=== PATIENT | female | born 1980 | race Caucasian/White ===

== ENCOUNTER → 2016-04-29 | Outpatient (CLI) | payer BC, OTHER ==
--- NOTE | 2016-04-29 15:20 | US ---
EXAMINATION TYPE: US abdomen complete DATE OF EXAM: 04/29/2016 12:20 PM COMPARISON: 2008 abd in pacs CLINICAL HISTORY: 35-year-old female Abdominal Pain R10.84. acute right sided pain. TECHNIQUE: Multiple sonographic images of the abdomen were obtained. FINDINGS: Liver Length: 14.9 cm Gallbladder Wall: 0.2 cm CBD: 0.4 cm Spleen: 9.3 cm Right Kidney: 11.6 x 3.7 x 5.6 cm Left Kidney: 10.7 x 5.6 x 5.9 cm Pancreas: Within normal limits Liver: Normal size with homogeneous echotexture. No focal lesion seen. Gallbladder: No abnormal gallbladder distention, wall thickening, pericholecystic fluid, or shadowin g calculi. Evidence for sonographic Owusu's sign: no CBD: Normal size. Spleen: Within normal limits. Right Kidney: No hydronephrosis. Left Kidney: No hydronephrosis. Upper IVC: Within normal limits. Abd Aorta: Within normal limits. IMPRESSION: Unremarkable sonographic examination of the abdomen.
== END | disposition home or self-care (01) ==
LOC: RADUSWWP 12:00
PROVIDERS: ATTEND Family Medicine
DX: R10.9 Unspecified abdominal pain (principal)
CPT/HCPCS: 76700

== ENCOUNTER → 2016-05-06 | Outpatient (CLI) | payer BC, OTHER ==
--- NOTE | 2016-05-07 08:10 | CT ---
EXAMINATION TYPE: CT abdomen pelvis wo con DATE OF EXAM: 05/06/2016 5:32 PM COMPARISON: NONE HISTORY: Right sided pain with nausea CT DLP: 512 mGycm FINDINGS: LUNG BASES: No evidence for nodule. No evidence for infiltrate. LIVER/GB: The gallbladder is unremarkable. No space-occupying hepatic lesion. PANCREAS: No pancreatic mass identified. No inflammatory process seen. SPLEEN: No evidence for splenomegaly. No intrasplenic lesions seen. ADRENALS: No adrenal nodules identified. No evidence for thickening. KIDNEYS: No evidence for renal mass. No nephrolithiasis. No hydronephrosis. BOWEL: Appendix has a normal appearance. No evidence of bowel obstruction. No inflammatory process. Lymph nodes: No evidence for adenopathy greater than 1 cm. Abdominal aorta: Atheromatous changes seen. No evidence for aneurysm. Genital organs: No evidence for uterine mass. The right ovary is unremarkable. Fullness of the left o vary measuring 3.4 cm may reflect underlying lesion. Consider ultrasound correlation. Other: Degenerative change and postoperative change lumbar spine. Anterolisthesis L5 on S1 of several millimeters. IMPRESSION: Fullness of the left ovary measuring 3.4 cm may reflect underlying lesion. Consider ultrasound correl ation.
== END | disposition home or self-care (01) ==
LOC: RADCTMAIN 17:09
PROVIDERS: ATTEND Family Medicine
DX: R31.9 Hematuria, unspecified (principal)
CPT/HCPCS: 74176

== ENCOUNTER 2016-06-08 13:15 | Emergency (ER) | payer SELFPAY ==
[2016-06-08] MEDS ORDERED: ASPIRIN 325 MG TAB PO STA (14:11)
--- NOTE | 2016-06-08 14:13 | ED ---
Arrhythmia/Palpitations HPI - General Chief Complaint: Arrhythmia/Palpitations Stated Complaint: Palpatations Time Seen by Provider: 06/08/16 14:00 Source: patient, RN notes reviewed Mode of arrival: ambulatory Limitations: no limitations - History of Present Illness Initial Comments: 35-year-old female presents emergency Department with chief complaint of palpitations. Patient states ever since last night she's been having palpitations and stating that it feels that her heart is skipping a beat. Patient states she's never had any symptoms like this in the past. Patient denies any chest pain, shortness breath, fever, chills, dizziness, nausea vomiting associated with. Patient states she has been having ongoing abdominal issues for last 2 months in which she seen her primary care physician and OB/ CASHIER RECEPTIONIST and had multiple tests and which are ruling out things. Patient states that she does have a history anxiety and states that she no she was worked up about everything is going on. Patient denies any headache, focal weakness. Patient denies any history of hypertension, hyperlipidemia, diabetes. - Related Data Home Medications Medication Instructions Recorded Confirmed HYDROcodone/APAP 5-325MG [[place] 5] 1 tab PO Q4HR PRN 06/08/16 06/08/16 Allergies Allergy/AdvReac Type Severity Reaction Status Date / Time amoxicillin [Amoxicillin] Allergy HIVES Verified 06/08/16 14:30 prednisone Allergy SOB Verified 06/08/16 14:30 Review of Systems ROS Statement: Those systems with pertinent positive or pertinent negative responses have been documented in the HPI. ROS Other: All systems not noted in ROS Statement are negative. Past Medical History Past Medical History: No Reported History Additional Past Medical History / Comment(s): 09/03/14 Pt admitted to floor s/p lumbar surgery (see surgical hx section). Other HX: seasonal allergies. History of Any Multi-Drug Resistant Organisms: None Reported Past Surgical History: Back Surgery, Section, Orthopedic Surgery Additional Past Surgical History / Comment(s): 09/03/14 Posterior lumbar decompression and fusion, transforaminal lumbar interbody fusion L5-S1 with cell saver, graft and NIM cord monitoring. Other SX HX: ESSURE PROCEDURE, PAIN INJECTIONS to low back. Additional Past Anesthesia/Blood Transfusion Reaction / Comment(s): Pt has never recieved blood. Past Psychological History: ADD/ADHD, Anxiety Additional Psychological History / Comment(s): Pt states she has ADHD and takes concerta while in school. She lives with her fiancee and 2 of her 4 children. She is independent. She has no assistive devices and no home care agency use. She drives a car. Smoking Status: Former smoker Past Alcohol Use History: Rare Additional Past Alcohol Use History / Comment(s): Pt states she started smoking at age 11 yrs old and QUIT MAY 2014. Past Drug Use History: None Reported - Past Family History Mother Additional Family Medical History / Comment(s): Hysterectomy for pre-cancer Father Additional Family Medical History / Comment(s): Father is an alcoholic per pt. General Exam Limitations: no limitations General appearance: alert, in no apparent distress Head exam: Present: atraumatic, normocephalic, normal inspection Eye exam: Present: normal appearance, PERRL, EOMI. Absent: scleral icterus, conjunctival injection, periorbital swelling ENT exam: Present: normal exam, normal oropharynx, mucous membranes moist, TM's normal bilaterally, normal external ear exam Neck exam: Present: normal inspection, full ROM. Absent: tenderness, meningismus, lymphadenopathy Respiratory exam: Present: normal lung sounds bilaterally. Absent: respiratory distress, wheezes, rales, rhonchi, stridor Cardiovascular Exam: Present: regular rate, normal rhythm, normal heart sounds. Absent: systolic murmur, diastolic murmur, rubs, gallop, clicks Course Vital Signs 06/08/16 13:27 Temperature 97.4 F L Pulse Rate 93 Respiratory 16 Rate Blood Pressure 117/72 O2 Sat by Pulse 100 Oximetry EKG Findings - EKG Comments: EKG Findings:: EKG performed at 14:02, sinus rhythm with a rate of 83, SC 140, QRS duration 92, QT/QTC 384/451 Medical Decision Making - Medical Decision Making 35-year-old female presented emergency department for palpitations. Patient's EKG shows no acute abnormality. Patient's lab work and will months. Patient will be discharged follow-up with advertising operations coordinator and primary care physician for possible Holter monitor or further testing. Return parameters were discussed. - Lab Data Result diagrams: 06/08/16 14:18 06/08/16 14:18 Lab Results 06/08/16 06/08/16 06/08/16 Range/Units 14:18 14:18 14:18 WBC 5.3 (3.8-10.6) k/uL RBC 4.64 (3.80-5.40) m/uL Hgb 12.8 (11.4-16.0) gm/dL Hct 40.4 (34.0-46.0) % MCV 87.0 (80.0-100.0) fL MCH 27.5 (25.0-35.0) pg MCHC 31.6 (31.0-37.0) g/dL RDW 11.8 (11.5-15.5) % Plt Count 286 (150-450) k/uL Neutrophils % 61 % Lymphocytes % 26 % Monocytes % 9 % Eosinophils % 1 % Basophils % 1 % Neutrophils # 3.2 (1.3-7.7) k/uL Lymphocytes # 1.4 (1.0-4.8) k/uL Monocytes # 0.5 (0-1.0) k/uL Eosinophils # 0.1 (0-0.7) k/uL Basophils # 0.0 (0-0.2) k/uL PT (9.0-12.0) sec INR (<1.1) APTT (22.0-30.0) sec Sodium 141 (137-145) mmol/L Potassium 4.1 (3.5-5.1) mmol/L Chloride 104 (98-107) mmol/L Carbon Dioxide 29 (22-30) mmol/L Anion Gap 8 mmol/L BUN 8 (7-17) mg/dL Creatinine 0.70 (0.52-1.04) mg/dL Est GFR (MDRD) Af Amer >60 (>60 ml/min/1.73 sqM) Est GFR (MDRD) Non-Af >60 (>60 ml/min/1.73 sqM) Glucose 79 (74-99) mg/dL Calcium 9.3 (8.4-10.2) mg/dL Magnesium 2.1 (1.6-2.3) mg/dL Total Bilirubin 0.5 (0.2-1.3) mg/dL AST 15 (14-36) U/L ALT 30 (9-52) U/L Alkaline Phosphatase 64 (38-126) U/L Total Creatine Kinase 40 (30-135) U/L CK-MB (CK-2) <0.2 (0.0-2.4) ng/mL CK-MB (CK-2) Rel Index Troponin I <0.012 (0.000-0.034) ng/mL Total Protein 7.1 (6.3-8.2) g/dL Albumin 4.1 (3.5-5.0) g/dL TSH 0.870 (0.465-4.680) mIU/L 06/08/16 Range/Units 14:18 WBC (3.8-10.6) k/uL RBC (3.80-5.40) m/uL Hgb (11.4-16.0) gm/dL Hct (34.0-46.0) % MCV (80.0-100.0) fL MCH (25.0-35.0) pg MCHC (31.0-37.0) g/dL RDW (11.5-15.5) % Plt Count (150-450) k/uL Neutrophils % % Lymphocytes % % Monocytes % % Eosinophils % % Basophils % % Neutrophils # (1.3-7.7) k/uL Lymphocytes # (1.0-4.8) k/uL Monocytes # (0-1.0) k/uL Eosinophils # (0-0.7) k/uL Basophils # (0-0.2) k/uL PT 11.8 (9.0-12.0) sec INR 1.2 (<1.1) APTT 25.1 (22.0-30.0) sec Sodium (137-145) mmol/L Potassium (3.5-5.1) mmol/L Chloride (98-107) mmol/L Carbon Dioxide (22-30) mmol/L Anion Gap mmol/L BUN (7-17) mg/dL Creatinine (0.52-1.04) mg/dL Est GFR (MDRD) Af Amer (>60 ml/min/1.73 sqM) Est GFR (MDRD) Non-Af (>60 ml/min/1.73 sqM) Glucose (74-99) mg/dL Calcium (8.4-10.2) mg/dL Magnesium (1.6-2.3) mg/dL Total Bilirubin (0.2-1.3) mg/dL AST (14-36) U/L ALT (9-52) U/L Alkaline Phosphatase (38-126) U/L Total Creatine Kinase (30-135) U/L CK-MB (CK-2) (0.0-2.4) ng/mL CK-MB (CK-2) Rel Index Troponin I (0.000-0.034) ng/mL Total Protein (6.3-8.2) g/dL Albumin (3.5-5.0) g/dL TSH (0.465-4.680) mIU/L Disposition Clinical Impression: Palpitations Disposition: HOME SELF-CARE Condition: Stable Instructions: Palpitations (ED) Additional Instructions: Please return to the Emergency Department if symptoms worsen or any other concerns. Referrals: Nagi Strickland DO [Primary Care Provider] - 1-2 days Courtney Urbina MD [STAFF PHYSICIAN] - 1-2 days Time of Disposition: 15:26
[2016-06-08 14:29] LABS: Basophils % (A) 1 %; CH 28.1; CHCM 32.5; Eosinophils # (A) 0.1 k/uL (0-0.7); Eosinophils % (A) 1 %; HCT 40.4 % (34.0-46.0); HDW 2.39; HGB 12.8 gm/dL (11.4-16.0); Luc # (Auto) 0.14; Luc % (Auto) 3; Lymphocytes # (A) 1.4 k/uL (1.0-4.8); Lymphocytes % (A) 26 %; MCH 27.5 pg (25.0-35.0); MCHC 31.6 g/dL (31.0-37.0); Mean Platelet Volume 6.6; Monocytes # (A) 0.5 k/uL (0-1.0); Monocytes % (A) 9 %; Neutrophils # (A) 3.2 k/uL (1.3-7.7); Neutrophils % (A) 61 %; RBC 4.64 m/uL (3.80-5.40); RDW 11.8 % (11.5-15.5); WBC 5.3 k/uL (3.8-10.6)
[2016-06-08 14:36] LABS: INR 1.2 (<1.1); Partial Thromboplastin Time 25.1 sec (22.0-30.0); Prothrombin Time 11.8 sec (9.0-12.0)
[2016-06-08 14:39] LABS: ALT 30 U/L (9-52); AST 15 U/L (14-36); Alkaline Phosphatase 64 U/L (38-126); Anion Gap 8 mmol/L; Blood Urea Nitrogen 8 mg/dL (7-17); Calcium 9.3 mg/dL (8.4-10.2); Carbon Dioxide 29 mmol/L (22-30); Chloride 104 mmol/L (98-107); Glucose 79 mg/dL (74-99); Magnesium 2.1 mg/dL (1.6-2.3); Non-African American GFR(MDRD) >60 (>60 ml/min/1.73 sqM); Potassium 4.1 mmol/L (3.5-5.1); Sodium 141 mmol/L (137-145); Total Bilirubin 0.5 mg/dL (0.2-1.3); Total Protein 7.1 g/dL (6.3-8.2)
[2016-06-08 14:53] LABS: Creatine Kinase 40 U/L (30-135)
--- NOTE | 2016-06-08 14:59 | XR ---
EXAMINATION TYPE: XR chest 2V DATE OF EXAM: 06/08/2016 2:40 PM COMPARISON: 08/27/2014 INDICATION: Abnormal heart rate TECHNIQUE: Single frontal view of the chest is obtained. FINDINGS: The heart size is normal. The pulmonary vasculature is normal. The lungs are clear. IMPRESSION: 1. No acute pulmonary process.
[2016-06-08 15:05] LABS: Creatine Kinase MB <0.2 ng/mL (0.0-2.4); Troponin I <0.012 ng/mL (0.000-0.034)
[2016-06-08 15:54] VITALS: BP 108/57; PULSE 75; RESP 18; TEMP 97.9
== END 2016-06-08 15:54 | disposition home or self-care (01) ==
LOC: EC 13:15
DX: R00.2 Palpitations (principal); Z87.891 Personal history of nicotine dependence; Z88.0 Allergy status to penicillin; Z88.8 Allergy status to other drugs, medicaments and biological substances
CPT/HCPCS: 36415; 71020; 80053; 82550; 82553; 83735; 84443; 84484; 85025; 85610; 85730; 93005; 99285

== ENCOUNTER 2016-10-03 09:23 | Day surgery (SDC) | payer OTHER ==
[2016-09-29 14:03] VITALS: BMI 31.3
[~2016-10-03 09:23] MED LIST: LACTATED RINGERS 1,000 ML IV SCH
[2016-10-03 09:46] VITALS: TEMP 100.2
[2016-10-03] MEDS: LACTATED RINGERS 1,000 ML IV SCH ×2 (09:56→11:11)
[2016-10-03] MEDS ORDERED: LIDOCAINE 1% 20 ML VIAL (10MG/ML) FOR IV START INTRADERMA ONE (09:56)
[2016-10-03] MEDS ORDERED: PROPOFOL 10 MG/ML 20 ML VIAL IV ONE (11:12)
--- NOTE | 2016-10-03 11:47 | P.PCN ---
Date of Procedure: 10/03/16 Preoperative Diagnosis: Postoperative Diagnosis: Procedure(s) Performed: Procedure: Total colonoscopy. Preoperative diagnosis: Abdominal pain and change in bowel habits.. Postoperative diagnosis: Exam the cecum within normal limits. Preparation: HalfLytely prep. Sedation: Was provided by anesthesia. Brief clinical history: The patient is a 35-year-old female who is referred for this evaluation because of abdominal pain and change in bowel habits that started in April of this year. The patient describes the pain to be mostly on the right side. Her bowel movements are mostly once a day and there are days where she would not have a BM for couple days, but there is no history of diarrhea. No history of bleeding. Gallbladder workup was negative. This evaluation is requested to rule out neoplasia, inflammatory bowel disease or other pathology. Procedure: With the patient on her left lateral decubitus position and after informed consent and adequate sedation, the perianal area was inspected and it did not show any fissures or fistulas. There were no masses felt on digital rectal examination. The Olympus CFQ 160L video colonoscope was then inserted in the rectum in the usual fashion and advanced to the cecum. I intubated the ileocecal valve and examined the terminal ileum as well. The mucosa appeared healthy. No polyps or tumors were seen or any obvious diverticular disease. I retroflexed the endoscope in the rectum before the endoscope was withdrawn. The patient tolerated the procedure well. Plan: The patient was reassured. Further plans will be made based on her course. For future screening for colon neoplasia, I am recommending repeat exam in 10 years or by age 49. She will follow-up with you as planned. Implants: Indications for Procedure: Operative Findings: Description of Procedure:
[2016-10-03 11:57] VITALS: BP 110/57; PULSE 72; RESP 18
== END 2016-10-03 12:23 | disposition home or self-care (01) ==
LOC: ORWHC2ENDO 09:23
DX: R19.4 Change in bowel habit (principal); R10.9 Unspecified abdominal pain; Z88.0 Allergy status to penicillin; Z88.8 Allergy status to other drugs, medicaments and biological substances; Z79.891 Long term (current) use of opiate analgesic; Z98.1 Arthrodesis status
CPT/HCPCS: 81025; 45378; J2704

== ENCOUNTER 2017-06-21 15:22 | Emergency (ER) | payer OTHER ==
[2017-06-21] MEDS ORDERED: SODIUM CHLORIDE 0.9% 1,000 ML IV STA (16:39)
--- NOTE | 2017-06-21 16:42 | ED ---
General Adult HPI - General Chief complaint: Abdominal Pain Stated complaint: Abdominal pain Time Seen by Provider: 06/21/17 16:33 Source: patient, RN notes reviewed Mode of arrival: ambulatory Limitations: no limitations - History of Present Illness Initial comments: Patient is a pleasant 36-year-old female presenting to the emergency Department with abdominal discomfort. Patient has not felt well for a couple of days. Decreased appetite. Patient has had some nausea and did vomit earlier. Patient felt lightheaded earlier however did not pass out. Patient is having some abdominal discomfort that has been intermittent. Patient states more so today. Patient did go to her doctor today and had discomfort with abdominal exam. No fever. Patient is currently on her menses. No pelvic pain. No discharge. - Related Data Home Medications Medication Instructions Recorded Confirmed HYDROcodone/APAP 5-325MG [[place] 5] 1 tab PO DAILY PRN 06/08/16 06/21/17 Loratadine [Claritin] 10 mg PO DAILY PRN 06/21/17 06/21/17 Meloxicam [Mobic] 15 mg PO DAILY PRN 06/21/17 06/21/17 Allergies Allergy/AdvReac Type Severity Reaction Status Date / Time amoxicillin [Amoxicillin] Allergy HIVES Verified 06/21/17 16:55 prednisone Allergy SOB Verified 06/21/17 16:55 Review of Systems ROS Statement: Those systems with pertinent positive or pertinent negative responses have been documented in the HPI. ROS Other: All systems not noted in ROS Statement are negative. Constitutional: Denies: fever Eyes: Denies: eye pain ENT: Denies: ear pain Respiratory: Denies: cough Cardiovascular: Denies: chest pain Endocrine: Denies: fatigue Gastrointestinal: Reports: abdominal pain, nausea Genitourinary: Denies: dysuria Musculoskeletal: Reports: back pain (Chronic unchanged back pain) Skin: Denies: rash Neurological: Denies: weakness Past Medical History Past Medical History: No Reported History Additional Past Medical History / Comment(s): seasonal allergies. IBS History of Any Multi-Drug Resistant Organisms: None Reported Past Surgical History: Back Surgery, Section, Orthopedic Surgery Additional Past Surgical History / Comment(s): 09/03/14 Posterior lumbar decompression and fusion, transforaminal lumbar interbody fusion L5-S1 with cell saver, graft and NIM cord monitoring. Other SX HX: ESSURE PROCEDURE, PAIN INJECTIONS to low back. Past Anesthesia/Blood Transfusion Reactions: No Reported Reaction Additional Past Anesthesia/Blood Transfusion Reaction / Comment(s): Pt has never recieved blood. Past Psychological History: ADD/ADHD, Anxiety Smoking Status: Current every day smoker Past Alcohol Use History: None Reported Past Drug Use History: None Reported - Past Family History Mother Additional Family Medical History / Comment(s): Hysterectomy for pre-cancer Father Additional Family Medical History / Comment(s): Father is an alcoholic per pt. General Exam Limitations: no limitations General appearance: alert, in no apparent distress Head exam: Present: atraumatic Eye exam: Present: normal appearance, PERRL ENT exam: Present: normal oropharynx Neck exam: Present: normal inspection Respiratory exam: Present: normal lung sounds bilaterally Cardiovascular Exam: Present: regular rate, normal rhythm Expanded Peripheral pulses: 2+: Posterior Tibialis (R), Posterior Tibialis (L) GI/Abdominal exam: Present: soft, tenderness (Mild tenderness right lower quadrant), normal bowel sounds. Absent: distended, guarding, rebound, rigid, pulsatile mass Extremities exam: Present: normal inspection Back exam: Present: normal inspection. Absent: CVA tenderness (R) Neurological exam: Present: alert Psychiatric exam: Present: normal affect, normal mood Skin exam: Present: normal color Course Vital Signs 06/21/17 15:29 Temperature 98.6 F Pulse Rate 91 Respiratory 18 Rate Blood Pressure 122/69 O2 Sat by Pulse 99 Oximetry Medical Decision Making - Medical Decision Making Patient reevaluated and resting comfortably in bed. Patient updated on results and need for follow-up. - Lab Data Result diagrams: 06/21/17 16:49 06/21/17 16:49 Lab Results 06/21/17 06/21/17 06/21/17 Range/Units 16:49 16:49 16:49 WBC 7.3 (3.8-10.6) k/uL RBC 4.88 (3.80-5.40) m/uL Hgb 14.0 (11.4-16.0) gm/dL Hct 41.8 (34.0-46.0) % MCV 85.7 (80.0-100.0) fL MCH 28.7 (25.0-35.0) pg MCHC 33.5 (31.0-37.0) g/dL RDW 11.9 (11.5-15.5) % Plt Count 350 (150-450) k/uL Neutrophils % 62 % Lymphocytes % 26 % Monocytes % 6 % Eosinophils % 5 % Basophils % 1 % Neutrophils # 4.5 (1.3-7.7) k/uL Lymphocytes # 1.9 (1.0-4.8) k/uL Monocytes # 0.4 (0-1.0) k/uL Eosinophils # 0.3 (0-0.7) k/uL Basophils # 0.1 (0-0.2) k/uL PT 11.3 (9.0-12.0) sec INR 1.2 H (<1.2) APTT 24.4 (22.0-30.0) sec Sodium 141 (137-145) mmol/L Potassium 4.1 (3.5-5.1) mmol/L Chloride 104 (98-107) mmol/L Carbon Dioxide 28 (22-30) mmol/L Anion Gap 9 mmol/L BUN 10 (7-17) mg/dL Creatinine 0.60 (0.52-1.04) mg/dL Est GFR (CKD-EPI)AfAm >90 (>60 ml/min/1.73 sqM) Est GFR (CKD-EPI)NonAf >90 (>60 ml/min/1.73 sqM) Glucose 90 (74-99) mg/dL Calcium 9.8 (8.4-10.2) mg/dL Total Bilirubin 0.3 (0.2-1.3) mg/dL AST 19 (14-36) U/L ALT 17 (9-52) U/L Alkaline Phosphatase 74 (38-126) U/L Total Protein 7.5 (6.3-8.2) g/dL Albumin 4.4 (3.5-5.0) g/dL Amylase 48 (30-110) U/L Lipase 88 (23-300) U/L Urine Color Urine Appearance (Clear) Urine pH (5.0-8.0) Ur Specific [place] (1.001-1.035) Urine Protein (Negative) Urine Glucose (UA) (Negative) Urine Ketones (Negative) Urine Blood (Negative) Urine Nitrite (Negative) Urine Bilirubin (Negative) Urine Urobilinogen (<2.0) mg/dL Ur Leukocyte Esterase (Negative) Urine RBC (0-5) /hpf Urine WBC (0-5) /hpf Ur Squamous Epith Cells (0-4) /hpf Urine Mucus (None) /hpf 06/21/17 Range/Units 16:49 WBC (3.8-10.6) k/uL RBC (3.80-5.40) m/uL Hgb (11.4-16.0) gm/dL Hct (34.0-46.0) % MCV (80.0-100.0) fL MCH (25.0-35.0) pg MCHC (31.0-37.0) g/dL RDW (11.5-15.5) % Plt Count (150-450) k/uL Neutrophils % % Lymphocytes % % Monocytes % % Eosinophils % % Basophils % % Neutrophils # (1.3-7.7) k/uL Lymphocytes # (1.0-4.8) k/uL Monocytes # (0-1.0) k/uL Eosinophils # (0-0.7) k/uL Basophils # (0-0.2) k/uL PT (9.0-12.0) sec INR (<1.2) APTT (22.0-30.0) sec Sodium (137-145) mmol/L Potassium (3.5-5.1) mmol/L Chloride (98-107) mmol/L Carbon Dioxide (22-30) mmol/L Anion Gap mmol/L BUN (7-17) mg/dL Creatinine (0.52-1.04) mg/dL Est GFR (CKD-EPI)AfAm (>60 ml/min/1.73 sqM) Est GFR (CKD-EPI)NonAf (>60 ml/min/1.73 sqM) Glucose (74-99) mg/dL Calcium (8.4-10.2) mg/dL Total Bilirubin (0.2-1.3) mg/dL AST (14-36) U/L ALT (9-52) U/L Alkaline Phosphatase (38-126) U/L Total Protein (6.3-8.2) g/dL Albumin (3.5-5.0) g/dL Amylase (30-110) U/L Lipase (23-300) U/L Urine Color Light Yellow Urine Appearance Clear (Clear) Urine pH 6.5 (5.0-8.0) Ur Specific [place] 1.009 (1.001-1.035) Urine Protein Negative (Negative) Urine Glucose (UA) Negative (Negative) Urine Ketones Negative (Negative) Urine Blood Moderate H (Negative) Urine Nitrite Negative (Negative) Urine Bilirubin Negative (Negative) Urine Urobilinogen <2.0 (<2.0) mg/dL Ur Leukocyte Esterase Negative (Negative) Urine RBC 23 H (0-5) /hpf Urine WBC 1 (0-5) /hpf Ur Squamous Epith Cells 1 (0-4) /hpf Urine Mucus Occasional H (None) /hpf - Radiology Data Radiology results: report reviewed (Computed tomography scan of the abdomen pelvis shows no acute process. Appendix appears normal) Disposition Clinical Impression: Abdominal pain Disposition: HOME SELF-CARE Condition: Stable Instructions: Abdominal Pain (ED) Additional Instructions: Please follow-up to primary care physician tomorrow. Please also follow-up with gastroenterology in the next couple of days for further evaluation. Return for fevers, increased pain, vomiting, passing out, worsening symptoms or other concerns. Referrals: Nagi Strickland DO [Primary Care Provider] - 1-2 days Nancy Roach MD [STAFF PHYSICIAN] - 1-2 days Time of Disposition: 18:30
[2017-06-21 17:01] LABS: Basophils # (A) 0.1 k/uL (0-0.2); Basophils % (A) 1 %; Eosinophils # (A) 0.3 k/uL (0-0.7); Eosinophils % (A) 5 %; HCT 41.8 % (34.0-46.0); Lymphocytes # (A) 1.9 k/uL (1.0-4.8); Lymphocytes % (A) 26 %; MCH 28.7 pg (25.0-35.0); MCHC 33.5 g/dL (31.0-37.0); MCV 85.7 fL (80.0-100.0); Mean Platelet Volume 6.9; Monocytes # (A) 0.4 k/uL (0-1.0); Monocytes % (A) 6 %; Neutrophils # (A) 4.5 k/uL (1.3-7.7); Neutrophils % (A) 62 %; Platelet Count 350 k/uL (150-450); RBC 4.88 m/uL (3.80-5.40); RDW 11.9 % (11.5-15.5); WBC 7.3 k/uL (3.8-10.6)
[2017-06-21 17:12] LABS: INR 1.2 (<1.2); Partial Thromboplastin Time 24.4 sec (22.0-30.0); Prothrombin Time 11.3 sec (9.0-12.0)
[2017-06-21 17:14] LABS: ALT 17 U/L (9-52); AST 19 U/L (14-36); Albumin 4.4 g/dL (3.5-5.0); Alkaline Phosphatase 74 U/L (38-126); Amylase 48 U/L (30-110); Anion Gap 9 mmol/L; Appearance,Urine Clear (Clear); Bilirubin,Urine Negative (Negative); Blood Urea Nitrogen 10 mg/dL (7-17); Blood,Urine Moderate (Negative); Calcium 9.8 mg/dL (8.4-10.2); Carbon Dioxide 28 mmol/L (22-30); Chloride 104 mmol/L (98-107); Color,Urine Light Yellow; Glucose 90 mg/dL (74-99); Glucose,Urine (UA) Negative (Negative); Ketones,Urine Negative (Negative); Leukocyte Esterase,Urine Negative (Negative); Lipase 88 U/L (23-300); Mucus,Urine Occasional /hpf; Nitrite,Urine Negative (Negative); PH, Urine 6.5 (5.0-8.0); Potassium 4.1 mmol/L (3.5-5.1); Protein,Urine Negative (Negative); RBC,Urine 23 /hpf (0-5); Sodium 141 mmol/L (137-145); Specific Gravity,Urine 1.009 (1.001-1.035); Squamous Epithelial Cell,Urine 1 /hpf (0-4); Total Bilirubin 0.3 mg/dL (0.2-1.3); Total Protein 7.5 g/dL (6.3-8.2); Urobilinogen,Urine <2.0 mg/dL (<2.0); WBC,Urine 1 /hpf (0-5)
--- NOTE | 2017-06-21 17:58 | CT ---
EXAMINATION TYPE: CT abdomen pelvis wo con DATE OF EXAM: 06/21/2017 COMPARISON: May 06, 2016 CT HISTORY: Patient complains of right flank pain. CT DLP: 481.8 mGycm. Automated exposure control for dose reduction was used. TECHNIQUE: Helical acquisition of images was performed from the lung bases through the pelvis. FINDINGS: LUNG BASES: No significant abnormality is appreciated. LIVER/GB: No significant abnormality is appreciated. PANCREAS: No significant abnormality is seen. SPLEEN: No significant abnormality is seen. ADRENALS: No significant abnormality is seen. KIDNEYS: No significant abnormality is seen. PERITONEAL CAVITY: Negative. RETROPERITONEAL ADENOPATHY: None visualized REPRODUCTIVE ORGANS: No significant abnormality is seen URINARY BLADDER: No significant abnormality is seen. PELVIC ADENOPATHY: None visualized. OSSEOUS STRUCTURES: No significant abnormality is seen. BOWEL: No significant abnormality is seen. The appendix is negative. OTHER: The anterior abdominal wall is intact. IMPRESSION: NO ACUTE PROCESS, CT ABDOMEN AND PELVIS WITHOUT CONTRAST.
[2017-06-21 18:56] VITALS: BP 130/69; PULSE 72; RESP 16; TEMP 97.9
== END 2017-06-21 18:55 | disposition home or self-care (01) ==
LOC: EC 15:22
DX: R10.31 Right lower quadrant pain (principal); R11.2 Nausea with vomiting, unspecified; M54.9 Dorsalgia, unspecified; G89.29 Other chronic pain; R42 Dizziness and giddiness; F17.200 Nicotine dependence, unspecified, uncomplicated; Z98.890 Other specified postprocedural states; Z88.0 Allergy status to penicillin; Z88.8 Allergy status to other drugs, medicaments and biological substances
CPT/HCPCS: 36415; 74176; 80053; 81001; 82150; 83690; 85025; 85610; 85730; 99284

== ENCOUNTER 2018-02-10 11:18 | Emergency (ER) | payer OTHER ==
[2018-02-10 11:23] VITALS: TEMP 98.3
[2018-02-10] MEDS ORDERED: KETOROLAC 60 MG/2 ML VIAL IM STA (11:35)
[2018-02-10] MEDS ORDERED: HYDROcodone/APAP 5-325MG 1 EACH TAB PO STA (11:36)
--- NOTE | 2018-02-10 12:07 | ED ---
General Adult HPI - General Chief complaint: Back Pain/Injury Stated complaint: FALL DOWN STAIRS Time Seen by Provider: 02/10/18 11:27 Source: patient, RN notes reviewed Mode of arrival: wheelchair Limitations: no limitations - History of Present Illness Initial comments: Patient 37-year-old female presented to the emergency room today with a chief complaint of an injury to her back. She has not that this morning she slipped when she was walking outside first up falling down approximate 4 steps on her back. Patient denies any head injury or loss conscious. Doesn't pain her lower back. States that she does take [place] at home for pain. Has not had today. Denies any lumbar radiculopathy. Denies any saddle anesthesia. Denies any bowel or bladder incontinence retention. Patient denies any recent fever, chills, shortness of breath, chest pain, abdominal pain, nausea or vomiting, numbness or tingling, headaches or visual changes, or any other complaints. - Related Data Home Medications Medication Instructions Recorded Confirmed HYDROcodone/APAP 5-325MG [[place] 5] 1 tab PO DAILY PRN 06/08/16 06/21/17 Loratadine [Claritin] 10 mg PO DAILY PRN 06/21/17 06/21/17 Meloxicam [Mobic] 15 mg PO DAILY PRN 06/21/17 06/21/17 Previous Rx's Medication Instructions Recorded Cyclobenzaprine [Flexeril] 10 mg PO TID #20 tab 02/10/18 Allergies Allergy/AdvReac Type Severity Reaction Status Date / Time amoxicillin [Amoxicillin] Allergy HIVES Verified 02/10/18 11:24 prednisone Allergy SOB Verified 02/10/18 11:24 Review of Systems ROS Statement: Those systems with pertinent positive or pertinent negative responses have been documented in the HPI. ROS Other: All systems not noted in ROS Statement are negative. Past Medical History Past Medical History: No Reported History Additional Past Medical History / Comment(s): seasonal allergies. IBS, chronic back pain History of Any Multi-Drug Resistant Organisms: None Reported Past Surgical History: Back Surgery, Section, Orthopedic Surgery Additional Past Surgical History / Comment(s): 09/03/14 Posterior lumbar decompression and fusion, transforaminal lumbar interbody fusion L5-S1 with cell saver, graft and NIM cord monitoring. Other SX HX: ESSURE PROCEDURE, PAIN INJECTIONS to low back. Past Anesthesia/Blood Transfusion Reactions: No Reported Reaction Additional Past Anesthesia/Blood Transfusion Reaction / Comment(s): Pt has never recieved blood. Past Psychological History: ADD/ADHD, Anxiety Smoking Status: Current every day smoker Past Alcohol Use History: None Reported Past Drug Use History: None Reported - Past Family History Mother Additional Family Medical History / Comment(s): Hysterectomy for pre-cancer Father Additional Family Medical History / Comment(s): Father is an alcoholic per pt. General Exam - General Exam Comments Initial Comments: General: The patient is awake and alert, in no distress, and does not appear acutely ill. Eye: Pupils are equal, round and reactive to light. Extra-ocular movements are intact. No nystagmus. There is normal conjunctiva bilaterally. No signs of icterus. Ears, nose, mouth and throat: There are moist mucous membranes and no oral lesions. Neck: The neck is supple, there is no tenderness or JVD. Cardiovascular: There is a regular rate and rhythm. No murmur, rub or gallop is appreciated. Respiratory: Lungs are clear to auscultation, respirations are non-labored, breath sounds are equal. No wheezes, stridor, rales, or rhonchi. Gastrointestinal: Soft, non-distended, non-tender abdomen without masses or organomegaly noted. There is no rebound or guarding present. No CVA tenderness. Musculoskeletal: Normal appearance of the thoracic or lumbar spinal no step-off deformity. No tenderness over cervical, thoracic spine from mildly tender from L3 to S1. No step-off or deformity. Sensation intact. Strength 5/5. Pulses equal bilaterally 2+. Neurological: A&O x 3. CN II-XII intact, There are no obvious motor or sensory deficits. Coordination appears grossly intact. Speech is normal. Skin: Skin is warm and dry and no rashes or lesions are noted. Psychiatric: Cooperative, appropriate mood & affect, normal judgment. Limitations: no limitations Course Vital Signs 02/10/18 11:20 Temperature 98.3 F Pulse Rate 81 Respiratory 20 Rate Blood Pressure 113/70 O2 Sat by Pulse 99 Oximetry Medical Decision Making - Medical Decision Making X-ray negative for any acute abnormalities. Results were discussed with patient. Patient discharged home advised to follow up with Dr. lama if any symptoms increase worsen or for any other concerns. Disposition Clinical Impression: Acute low back pain Disposition: HOME SELF-CARE Condition: Good Instructions: Acute Low Back Pain (ED) Additional Instructions: Please use medication as discussed. Please follow-up with family doctor in the next 2 days of symptoms have not improved. Please return to emergency room if the symptoms increase or worsen or for any other concerns. Prescriptions: Cyclobenzaprine [Flexeril] 10 mg PO TID #20 tab Is patient prescribed a controlled substance at d/c from ED?: No Referrals: Nagi Strickland DO [Primary Care Provider] - 1-2 days Time of Disposition: 13:24
--- NOTE | 2018-02-10 12:56 | XR ---
EXAMINATION TYPE: XR lumbosacral spine min 4V , 5 VIEWS DATE OF EXAM ORDERED: 02/10/2018 HISTORY: Pain. COMPARISON: Intraoperative study dated 09/03/2014.. FINDINGS: There is been a previous interpedicular fusion at L5-S1 with spacer placement. Vertebral body height and alignment are maintained. The visualized facets are unremarkable. The pedic les are intact. IMPRESSION: POSTOPERATIVE CHANGE.
[2018-02-10 13:31] VITALS: BP 110/70; PULSE 80; RESP 16
== END 2018-02-10 13:31 | disposition home or self-care (01) ==
LOC: EC 11:18
DX: M54.5 Low back pain (principal); F17.200 Nicotine dependence, unspecified, uncomplicated; Z88.0 Allergy status to penicillin; Z88.8 Allergy status to other drugs, medicaments and biological substances; Z98.1 Arthrodesis status; W10.9XXA Fall (on) (from) unspecified stairs and steps, initial encounter; Y93.01 Activity, walking, marching and hiking; Y92.89 Other specified places as the place of occurrence of the external cause
CPT/HCPCS: 72110; 99283; 96372; J1885

== ENCOUNTER 2019-06-28 16:16 | Emergency (ER) | payer OTHER ==
[2019-06-28 16:24] VITALS: BP 109/77; PULSE 100; RESP 22; TEMP 98.1
--- NOTE | 2019-06-28 16:57 | ED ---
General Adult HPI - General Chief complaint: Shortness of Breath Stated complaint: SOB, chest pain Time Seen by Provider: 06/28/19 16:25 Source: patient Mode of arrival: wheelchair Limitations: no limitations - History of Present Illness Initial comments: Patient is a 38-year-old female presenting to the emergency Department with complaints of shortness of breath, cough 1 week. Patient states she went to an urgent care on Monday and was tested for insulin and strap which were both negative. They did send her tested for Covid 19 testing, and is awaiting the results. Patient states she presents today for increase in shortness of breath. She is also complaining of cramping around her rib cage as well as intermittent pains that can be located on the right side of her chest, the back of her chest, front of her chest. She states that just getting up to walk around her house, she is feeling increase in shortness of breath. She denies any fever, chills, abdominal pain, nausea, vomiting, diarrhea. She denies history of asthma or COPD. She denies history of heart disease. She was a previous smoker, stopped in January of last year. She has no other complaints at this time. Upon arrival to the ER, her vital signs are stable. - Related Data Home Medications Medication Instructions Recorded Confirmed HYDROcodone/APAP 5-325MG [[place] 5] 1 tab PO DAILY PRN 06/08/16 06/21/17 Loratadine [Claritin] 10 mg PO DAILY PRN 06/21/17 06/21/17 Meloxicam [Mobic] 15 mg PO DAILY PRN 06/21/17 06/21/17 Previous Rx's Medication Instructions Recorded Cyclobenzaprine [Flexeril] 10 mg PO TID #20 tab 02/10/18 Azithromycin [Zithromax Z-pack] 0 mg PO DIRECTED #6 tab 06/25/18 Albuterol Inhaler [Ventolin Hfa 1 - 2 puff INHALATION RT-Q6H PRN 06/28/19 Inhaler] #1 inhaler Allergies Allergy/AdvReac Type Severity Reaction Status Date / Time amoxicillin [Amoxicillin] Allergy HIVES Verified 06/28/19 16:23 prednisone Allergy SOB Verified 06/28/19 16:23 Review of Systems ROS Statement: Those systems with pertinent positive or pertinent negative responses have been documented in the HPI. ROS Other: All systems not noted in ROS Statement are negative. Past Medical History Past Medical History: No Reported History Additional Past Medical History / Comment(s): seasonal allergies. IBS, chronic back pain History of Any Multi-Drug Resistant Organisms: None Reported Past Surgical History: Back Surgery, Orthopedic Surgery Additional Past Surgical History / Comment(s): 09/03/14 Posterior lumbar decompression and fusion, transforaminal lumbar interbody fusion L5-S1 with cell saver, graft and NIM cord monitoring. Other SX HX: ESSURE PROCEDURE, PAIN INJECTIONS to low back. Past Anesthesia/Blood Transfusion Reactions: No Reported Reaction Additional Past Anesthesia/Blood Transfusion Reaction / Comment(s): Pt has never recieved blood. Past Psychological History: ADD/ADHD, Anxiety Smoking Status: Former smoker Past Alcohol Use History: None Reported Past Drug Use History: None Reported - Past Family History Mother Additional Family Medical History / Comment(s): Hysterectomy for pre-cancer Father Additional Family Medical History / Comment(s): Father is an alcoholic per pt. General Exam - General Exam Comments Initial Comments: GENERAL: Well-appearing, well-nourished and in no acute distress. HEAD: Atraumatic, normocephalic. EYES: Pupils equal round and reactive to light, extraocular movements intact, sclera anicteric, conjunctiva are normal. ENT: TMs normal, nares patent, oropharynx clear without exudates. Moist mucous membranes. NECK: Normal range of motion, supple without lymphadenopathy or JVD. LUNGS: Breath sounds clear to auscultation bilaterally and equal. No wheezes rales or rhonchi. HEART: Regular rate and rhythm without murmurs, rubs or gallops. ABDOMEN: Soft, nontender, normoactive bowel sounds. No guarding, no rebound. No masses appreciated. : Deferred EXTREMITIES: Normal range of motion, no pitting or edema. No clubbing or cyanosis. NEUROLOGICAL: Normal speech, normal gait. PSYCH: Normal mood, normal affect. SKIN: Warm, Dry, normal turgor, no rashes or lesions noted. Limitations: no limitations Course Vital Signs 06/28/19 16:20 Temperature 98.1 F Pulse Rate 100 Respiratory 22 Rate Blood Pressure 109/77 O2 Sat by Pulse 100 Oximetry Medical Decision Making - Medical Decision Making Patient is a 38-year-old female presenting with shortness of breath and cough 1 week. She was tested for Covid-19 as is currently awaiting the results. Her vital signs are stable, 100% oxygen on room air, afebrile. Her exam is unremarkable. Chest x-ray shows no acute abnormalities. I discussed these results with the patient. I recommended patient continue to self isolate for a total 14 days. She will be given a prescription for an albuterol inhaler to use for shortness of breath. She also take Tylenol for her symptoms as well. Patient continues to be at 100% on room air, afebrile, pulse normal. She is stable for discharge. Strict return parameters were discussed with the patient she verbalized understanding. Case discussed with Dr. Weir. Disposition Clinical Impression: Suspected COVID-19 virus infection, Cough Disposition: HOME SELF-CARE Condition: Stable Instructions (If sedation given, give patient instructions): Upper Respiratory Infection (ED) Additional Instructions: Please return to the Emergency Department if symptoms worsen or any other concerns. Continue to self isolate for a total of 14 days. Trial of albuterol inhaler for shortness of breath and cough. May try [id number] cough suppressant. Follow-up with PCP as needed. Prescriptions: Albuterol Inhaler [Ventolin Hfa Inhaler] 1 - 2 puff INHALATION RT-Q6H PRN #1 inhaler PRN Reason: Shortness Of Breath Is patient prescribed a controlled substance at d/c from ED?: No Referrals: Nagi Strickland DO [Primary Care Provider] - 1-2 days
--- NOTE | 2019-06-28 17:03 | XR ---
EXAMINATION TYPE: XR chest 1V portable DATE OF EXAM: 06/28/2019 COMPARISON: Chest x-ray June 08, 2016. HISTORY: Cough and dyspnea. TECHNIQUE: Single AP portable frontal upright view of the chest is obtained. FINDINGS: There is no focal air space opacity, pleural effusion, or pneumothorax seen. The cardiac silhouette size is within normal limits. The osseous structures are intact. IMPRESSION: No acute process. No significant change from prior.
== END 2019-06-28 17:10 | disposition home or self-care (01) ==
LOC: EC 16:16
DX: R05 Cough (principal); Z20.828 Contact with and (suspected) exposure to other viral communicable diseases; R06.02 Shortness of breath; R07.81 Pleurodynia; M54.6 Pain in thoracic spine; G89.29 Other chronic pain; Z87.891 Personal history of nicotine dependence; Z88.0 Allergy status to penicillin; Z88.8 Allergy status to other drugs, medicaments and biological substances; Z79.1 Long term (current) use of non-steroidal anti-inflammatories (NSAID); Z98.1 Arthrodesis status
CPT/HCPCS: 71045; 99284

== ENCOUNTER 2019-11-15 09:47 | Emergency (ER) | payer OTHER ==
[2019-11-15 09:53] VITALS: PULSE 80; TEMP 98.6
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
[2019-11-15] MEDS ORDERED: LIDOCAINE 5% PATCH TOPICAL STA (10:15)
[2019-11-15] MEDS ORDERED: KETOROLAC 15 MG/ML 1 ML VIAL IM STA (10:15)
[2019-11-15] MEDS ORDERED: CYCLOBENZAPRINE 5 MG TAB PO STA (10:15)
[2019-11-15] MEDS ORDERED: CYCLOBENZAPRINE 10 MG TAB PO STA (11:18)
[2019-11-15] MEDS ORDERED: HYDROmorphone 1 MG/ML 1 ML SYRINGE IM STA (11:44)
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
[2019-11-15 12:16] VITALS: BP 120/78; RESP 14
== END 2019-11-15 12:15 | disposition home or self-care (01) ==
LOC: EC 09:47
DX: S39.012A Strain of muscle, fascia and tendon of lower back, initial encounter (principal); F17.290 Nicotine dependence, other tobacco product, uncomplicated; Z88.0 Allergy status to penicillin; Z88.8 Allergy status to other drugs, medicaments and biological substances; Z98.1 Arthrodesis status; Y93.55 Activity, bike riding
CPT/HCPCS: 81025; 72131; 99284; 96372 ×2; J1170; J1885

== ENCOUNTER 2020-04-19 17:48 | Emergency (ER) | payer OTHER ==
[2020-04-19 18:05] VITALS: RESP 18
--- NOTE | 2020-04-19 19:00 | ED ---
General Adult HPI - General Chief complaint: ENT Stated complaint: Covid+, Sore Throat Time Seen by Provider: 04/19/20 18:06 Source: patient Mode of arrival: ambulatory Limitations: no limitations - History of Present Illness Initial comments: 39-year-old female presents to the emergency department for chief complaint of mouth and throat pain. Patient states this started about 5-6 days ago. She saw her primary care provider at that time and was diagnosed clinically with strep, started on Bactrim given penicillin ALLERGY. Patient states it has not seemed to help. States it is painful to put in her dentures. Patient was diagnosed with cold that on March 27 however did not have these symptoms initially. Patient denies any fevers. Denies any neck pain or stiffness.Patient has no other complaints at this time including shortness of breath, chest pain, abdominal pain, nausea or vomiting, headache, or visual changes. - Related Data Home Medications Medication Instructions Recorded Confirmed HYDROcodone/APAP 5-325MG [[place] 5] 1 tab PO DAILY PRN 06/08/16 06/21/17 Loratadine [Claritin] 10 mg PO DAILY PRN 06/21/17 06/21/17 Meloxicam [Mobic] 15 mg PO DAILY PRN 06/21/17 06/21/17 Previous Rx's Medication Instructions Recorded Cyclobenzaprine [Flexeril] 10 mg PO TID #20 tab 02/10/18 Azithromycin [Zithromax Z-pack (6 0 mg PO DIRECTED #6 tab 06/25/18 tabs)] Albuterol Inhaler (Mhu) [Ventolin 1 - 2 puff INHALATION RT-Q6H PRN 06/28/19 Hfa Inhaler] #1 inhaler Lidocaine Viscous [Xylocaine 5 ml PO QID PRN #60 ml 04/19/20 Viscous 2%] Mag Hydrox/Al Hydrox/Simeth 5 ml PO QID PRN #60 ml 04/19/20 [Maalox] diphenhydrAMINE ELIXIR [Benadryl 5 ml PO QID PRN #60 ml 04/19/20 Elixir] Allergies Allergy/AdvReac Type Severity Reaction Status Date / Time amoxicillin [Amoxicillin] Allergy HIVES Verified 04/19/20 18:04 prednisone Allergy SOB Verified 04/19/20 18:04 Review of Systems ROS Statement: Those systems with pertinent positive or pertinent negative responses have been documented in the HPI. ROS Other: All systems not noted in ROS Statement are negative. Past Medical History Past Medical History: No Reported History Additional Past Medical History / Comment(s): seasonal allergies. IBS, chronic back pain History of Any Multi-Drug Resistant Organisms: None Reported Past Surgical History: Back Surgery, Orthopedic Surgery Additional Past Surgical History / Comment(s): 09/03/14 Posterior lumbar decompression and fusion, transforaminal lumbar interbody fusion L5-S1 with cell saver, graft and NIM cord monitoring. Other SX HX: ESSURE PROCEDURE, PAIN INJECTIONS to low back. Past Anesthesia/Blood Transfusion Reactions: No Reported Reaction Additional Past Anesthesia/Blood Transfusion Reaction / Comment(s): Pt has never recieved blood. Past Psychological History: ADD/ADHD, Anxiety Smoking Status: Vaper Past Alcohol Use History: None Reported Past Drug Use History: None Reported - Past Family History Mother Additional Family Medical History / Comment(s): Hysterectomy for pre-cancer Father Additional Family Medical History / Comment(s): Father is an alcoholic per pt. General Exam Limitations: no limitations General appearance: alert, in no apparent distress Head exam: Present: atraumatic Eye exam: Present: normal appearance, PERRL, EOMI. Absent: scleral icterus ENT exam: Present: normal external ear exam. Absent: normal exam (Patient has ulceration noted of the right sided oral mucosa, pharynx appears normal, uvula is midline, no lesions or exudate bilaterally. ) Neck exam: Present: normal inspection, full ROM. Absent: tenderness Respiratory exam: Present: normal lung sounds bilaterally. Absent: respiratory distress Cardiovascular Exam: Present: regular rate, normal rhythm, normal heart sounds GI/Abdominal exam: Present: soft, normal bowel sounds. Absent: distended, tenderness Neurological exam: Present: alert Course Vital Signs 04/19/20 18:02 Temperature 98.6 F Pulse Rate 100 Respiratory 18 Rate Blood Pressure 116/88 O2 Sat by Pulse 99 Oximetry Medical Decision Making - Medical Decision Making HPI physical exam as documented. Pertinent for lesions of the right side oral mucosa. No lesions of the palms or soles. No rashes. Dr. Lindsey also evaluated patient and is agreeing that there are ulcerations noted of the mucosa. Agrees to start patient on Magic mouthwash. She will continue Bactrim. She will follow up with her doctor this week. If she has any worsening symptoms she will return to the emergency room. Discussed that this could present as the first sign of oral cancer however this is highly unlikely. If it does not resolve however she will need further evaluation. Disposition Clinical Impression: Ulceration of oral mucosa Disposition: HOME SELF-CARE Condition: Good Instructions (If sedation given, give patient instructions): Canker Sores (ED) Additional Instructions: Please mix 5 mL of liquid lidocaine with 5 mL of liquid Benadryl and 5 mL of Maalox. Swish this around for 60 seconds in your mouth and then spit. Do not swallow. He uses as needed up to 4 times per day. Continue your Bactrim. Given any worsening symptoms return to the emergency room. Otherwise follow-up with primary care. Prescriptions: diphenhydrAMINE ELIXIR [Benadryl Elixir] 5 ml PO QID PRN #60 ml PRN Reason: Pain Mag Hydrox/Al Hydrox/Simeth [Maalox] 5 ml PO QID PRN #60 ml PRN Reason: Pain Lidocaine Viscous [Xylocaine Viscous 2%] 5 ml PO QID PRN #60 ml PRN Reason: Pain Is patient prescribed a controlled substance at d/c from ED?: No Referrals: Nagi Strickland DO [Primary Care Provider] - 1-2 days Time of Disposition: 18:56
[2020-04-19 19:58] VITALS: BP 118/86; PULSE 98; TEMP 98.2
== END 2020-04-19 19:47 | disposition home or self-care (01) ==
LOC: EC 17:48
DX: K12.1 Other forms of stomatitis (principal); Z88.0 Allergy status to penicillin; Z88.8 Allergy status to other drugs, medicaments and biological substances; Z98.1 Arthrodesis status
CPT/HCPCS: 99282

== ENCOUNTER → 2020-11-10 | Outpatient (CLI) | payer BC, OTHER | END | disposition home or self-care (01) | LOC: LABWHC1 15:29 | PROVIDERS: ATTEND Emergency Medicine | DX: Z03.818 Encounter for observation for suspected exposure to other biological agents ruled out (principal) | CPT/HCPCS: 87635; C9803 ==

== ENCOUNTER → 2020-11-11 | Outpatient (CLI) | payer BC, OTHER | END | disposition home or self-care (01) | LOC: LABWHC1 14:05 | PROVIDERS: ATTEND Emergency Medicine | DX: Z03.818 Encounter for observation for suspected exposure to other biological agents ruled out (principal); Z20.822 Contact with and (suspected) exposure to COVID-19 | CPT/HCPCS: 87635 ==

== ENCOUNTER → 2020-12-15 | Outpatient (CLI) | payer BC, OTHER ==
--- NOTE | 2020-12-16 21:46 | MR ---
EXAMINATION TYPE: MR lumbar spine wo/w con DATE OF EXAM: 12/15/2020 COMPARISON: Correlation CT 11/15/2019 HISTORY: 40-year-old female Low back pain Technique: Multiplanar, multisequence images of the lumbar spine were obtained before and after admin istration of 9 mL intravenous Gadavist gadolinium contrast. FINDINGS: Vertebral body heights are preserved and alignment is maintained. Conus medullaris is normal. No suspicious bone marrow replacement. Postsurgical changes of posterior and interbody fusion. At the fused level, there is a right intrafor aminal disc osteophyte complex noted. No large focal disc herniation or significant spinal canal stenosis is seen. There is mild disc bulgi ng above the fusion at L4-L5. Mild facet arthropathy mid lumbar spine. At L4-L5, there is minimal inferior foraminal narrowing on both sides. At L5-S1, the left neuroforamen is widely patent. There is a right interforaminal disc osteophyte com plex which contributes to a moderate right neuroforaminal stenosis. This also appears to abut the tra versing right S1 nerve root and there is also some subtle enhancing perineural granulation tissue farzaneh ng the posterior margin of the traversing right S1 nerve root along with contiguous right lateral epi dural granulation tissue, refer to axial T1 pre and post images 1 and also sagittal image 9. Otherwise, no abnormal enhancement within the spinal canal. IMPRESSION: 1. Status post L5-S1 posterior and interbody fusion. 2. There is a right intraforaminal disc osteophyte complex at this fused level that appears to abut t he traversing right S1 nerve root and also contributes to a moderate right neuroforaminal stenosis. 3. In addition, there appears to be enhancing perineural granulation tissue along the posterior chris n of the descending right S1 nerve root at this level (axial image 1 and sagittal image 9).
== END | disposition home or self-care (01) ==
LOC: RADMRIMAIN 12:06
PROVIDERS: ATTEND Orthopaedic Surgery Orthopaedic Surgery of the Spine
DX: M43.26 Fusion of spine, lumbar region (principal); E66.9 Obesity, unspecified; M54.16 Radiculopathy, lumbar region; F17.218 Nicotine dependence, cigarettes, with other nicotine-induced disorders
CPT/HCPCS: 72158; A9585

== ENCOUNTER → 2021-02-15 | Outpatient (CLI) | payer BC, OTHER ==
[2021-02-15 08:22] VITALS: BP 119/83; PULSE 106; RESP 18; TEMP 97.8
--- NOTE | 2021-02-15 08:50 | P.PAINCN ---
History of Present Illness - Reason for Consult Consult date: 02/15/21 - History of Present Illness This is 40 years old female with a chronic history of severe low back pain started more than 3 months ago, pain in the low back area is constant and localized in the right side of the low back with radiation to the right groin and the right buttock area,, intensity of the pain interferes with activity of daily livings and her ability to work or function, and tried to home exercise without any benefit and she tracked medication without any significant benefit and she is currently on [place] 5/325 every 8 hours when necessary and Flexeril 10 mg when necessary and Motrin 600 mg when necessary, denies any fever or night sweats she denies any change in the bowel movement or urination, patient reported that she had occasional numbness and tingling sensation in the right lower extremity, and lumbar fusion surgery at L5-S1 done in 2014, he did very well after the surgery until this pain started Past Medical History Past Medical History: No Reported History Additional Past Medical History / Comment(s): seasonal allergies. IBS, back painwith radiation down right leg History of Any Multi-Drug Resistant Organisms: None Reported Past Surgical History: Back Surgery, Orthopedic Surgery Additional Past Surgical History / Comment(s): 09/03/14 Posterior lumbar decompression and fusion, transforaminal lumbar interbody fusion L5-S1 with cell saver, graft and NIM cord monitoring. , ESSURE PROCEDURE, PAIN INJECTIONS to low back., ARTHROSCOPY LEFT KNEE. Past Anesthesia/Blood Transfusion Reactions: Previous Problems w/ Anesthesia, Postoperative Nausea & Vomiting (PONV) Additional Past Anesthesia/Blood Transfusion Reaction / Comm: Pt has never recieved blood. Past Psychological History: ADD/ADHD Additional Psychological History / Comment(s): . Smoking Status: Current every day smoker Past Alcohol Use History: Rare Additional Past Alcohol Use History / Comment(s): Pt states she started smoking at age 11 yrs old , SMOKES 1 PPD., QUIT VAPING. Past Drug Use History: None Reported - Past Family History Mother Additional Family Medical History / Comment(s): Hysterectomy for pre-cancer Father Family Medical History: No Reported History Additional Family Medical History / Comment(s): Father is an alcoholic per pt. Medications and Allergies Home Medications Medication Instructions Recorded Confirmed Type HYDROcodone/APAP 5-325MG [[place] 5] 1 tab PO Q8HR PRN 06/08/16 02/11/21 History Cyclobenzaprine [Flexeril] 10 mg PO DIRECTED PRN 02/11/21 02/11/21 History Ibuprofen [Motrin Ib] 400 - 600 mg PO DIRECTED PRN 02/11/21 02/11/21 History Multivit with Calcium,Iron,Min 1 each PO DAILY 02/11/21 02/11/21 History [Women's Multivitamin] Allergies Allergy/AdvReac Type Severity Reaction Status Date / Time methylprednisolone Allergy Unknown Swelling Verified 02/11/21 14:51 of face, itching, red face. amoxicillin [Amoxicillin] Allergy HIVES Verified 02/11/21 14:51 prednisone Allergy SOB Verified 02/11/21 14:51 Milk Containing Products AdvReac Unknown Diarrhea Verified 02/11/21 14:51 Physical Exam Vitals: Vital Signs Temp Pulse Resp BP Pulse Ox 02/15/21 08:15 97.8 F 106 H 18 119/83 98 Physical Examinations : -Constitutiona : Cooperative , not in acute distress . -HEENT : nech : supple , no Lymphadenopathy , normal thyroid size . : eyes : no ptosis , no icterus, no photophobia . - neurologic : Cranial nerve II to XII intact , no focal neurological deffecit . -psychatric : alert , oriented X 3 , appropriate affect , intact judgment and insight . -Lymphatic : no Lymphadenopathy . - musculoskeltal : Lumber spine moter stegnth lower extremities ,thigh and legs 5/5 Right side , 5/5 Left side deep tendon reflexes : normal Knee Jerk , normal ankle Jerk lumber facet Loading Test =positive Right , positive Left Range of motion of the lumbar spine Flexion 30 degrees, extension 10 degrees strait leg raising test = positive at 45 degree right side and is negative on the left side Fabere test= positive Right , and negative LT . Sever tenderness over the Sacroiliac joint on the Right . [place] test= positive right . Seated flexion test= positive right . Distraction test= positive right Sacroiliac compression test= positive right Results Comments: MRI of the pelvis degeneration in the sacroiliac joint. MRI of the lumbar spine and disc bulging at L4 5 and facet joint degeneration and there is L5-S1 interbody view fusion and that his right foraminal stenosis at L5-S1 Assessment and Plan Plan: Assessment and plan= 1-right sacroiliitis. 2- foraminal stenosis at L5-S1. 3-lumbar spondylosis and lumbar facet arthropathy. Patient could benefit from right-sided sacroiliac joint steroid injections under fluoroscopy guidance. she Had side effects from meeting prednisolone and prednisone, for this reason ,we will use dexamethasone for the injection Time with Patient: Greater than 30 PQRS Measure Charge Sheet Measure #130: Documentation of Current Meds in Medical Chart: Patient's medications documented in chart Measure #226: Tobacco Use: Screen & Cessation Intervention: Pt screened for tobacco use AND intervention given Measure #111: Pneumonia Vaccination: Pneumococcal vaccine NOT administered or previously given Measure #47: Advance Care Plan: Advance care planning discussed & documented, pt chose/unable to give Measure #412: Opioid Treatment Agreement: No documentation of signed opioid treatment agreement Measure #408: Opioid Therapy Follow-up Evaluation: Patient had NO f/u eval minimum every 3 months during opioid therapy Measure #317: Preventitive Care & Scrn High Bld Press & F/U: Normal blood pressure, f/u not required Measure #128: Body Mass Index (BMI) Screening & Follow-up: BMI documented ABOVE normal parameters - f/u documented Measure #131: Pain Assessment & Follow-up: Pain positive & plan documented, Follow-up scheduled Measure #431: Unhealthy Alcohol Use Preventative Care & Scrn: Patient not identified as an unhealthy alcohol user Mode of Arrival: Ambulatory - Pain Location Lower Back Non-Pharmacological Interventions: Heat, Ice, Physical Therapy, Stretching Pharmacological Interventions: Block, Epidural, Medication, PRN Medication PQRS Narrative: Smoking Status Former smoker Blood Pressure 119/83 Pain Intensity [Lower Back] 5 Scale Used Numeric (1 - 10) Hx Alcohol Use (MH) Yes: Rare Home Medications: Ambulatory Orders HYDROcodone/APAP 5-325MG [[place] 5] 1 tab PO Q8HR PRN 06/08/16 Cyclobenzaprine [Flexeril] 10 mg PO DIRECTED PRN 02/11/21 Ibuprofen [Motrin Ib] 400 - 600 mg PO DIRECTED PRN 02/11/21 Multivit with Calcium,Iron,Min [Women's Multivitamin] 1 each PO DAILY 02/11/21
== END | disposition home or self-care (01) ==
LOC: PNWHC3 08:08
PROVIDERS: ATTEND Specialist
DX: M43.26 Fusion of spine, lumbar region (principal); M54.16 Radiculopathy, lumbar region; M62.830 Muscle spasm of back; M51.26 Other intervertebral disc displacement, lumbar region; F17.218 Nicotine dependence, cigarettes, with other nicotine-induced disorders
CPT/HCPCS: 99211

== ENCOUNTER 2021-03-30 09:02 | Day surgery (SDC) | payer BC, OTHER ==
[2021-03-24 13:24] VITALS: BMI 33.4
[2021-03-30 10:07] VITALS: TEMP 97.8
[2021-03-30] MEDS ORDERED: IOPAMIDOL M200 10 ML VIAL ONE (10:36)
[2021-03-30] MEDS ORDERED: DEXAMETHASONE SOD PHOSPHATE 10 MG/ML 1 ML VIAL ONE (10:36)
[2021-03-30] MEDS ORDERED: MIDAZOLAM 2 MG/2 ML VIAL ONE (10:36)
[2021-03-30] MEDS ORDERED: fentaNYL (PF) 50 MCG/ML 2 ML AMP ONE (10:36)
--- NOTE | 2021-03-30 10:45 | P.PCN ---
Date of Procedure: 03/30/21 Description of Procedure: PREOPERATIVE DIAGNOSIS: Right-sided Sacroiliac joint dysfunction POSTOPERATIVE DIAGNOSIS: Right-sided Sacroiliac joint dysfunction. PROCEDURES: 1. Right-sided Sacroiliac joint steroid injection #1 out of 2 2. Sacroiliac joint arthrogram. SURGEON: Lena Landin ANESTHESIA: Local and IV sedation : Versed 2 mg, and fentanyl 100 g. EBL: None. Specimen removed: None Fluoroscopic image: saved to electronic medical records. PROCEDURE INDICATIONS: This patient with a history of chronic low back pain, and sacroiliac joint dysfunction. Patient tried conservative therapy. Came here for intervention management. PROCEDURE DESCRIPTION: The patient was seen and identified in the preoperative area. Risks, benefits, complications, and alternatives were discussed with the patient. The patient agreed to proceed with the procedure and signed the consent. IV was started, and vital signs were stable. Patient was taken to the OR and time out was completed. The patient was placed in the prone position on procedure table and a pillow was placed under the abdomen to reduce lumbar lordosis. The lumbosacral area was prepped and draped in the usual sterile fashion. Critical pause was taken. Vital signs were closely monitored during the procedure. For the right side, the fluoroscopic camera was placed in left oblique view and right SI joint lower pole was identified. Skin entry point was infiltrated with 1% lidocaine and 22-gauge 3.5 inch spinal needle was introduced into the inferior one-third of SI joint and after penetrating into the joint arthrogram was done. 0.5 ml of [id number] contrast was injected after negative aspiration for blood, and air and negative for paresthesia. Good spread of the contrast into the SI joint has been seen. Then again after negative aspiration of spinal fluid and blood and negative for neurological symptoms, 3 mL of a solution containing total 1 mL of 1% preservative-free lidocaine mixed with 20 mg of dexamethasone was injected. Needle was withdrawn intact. Needle was withdrawn intact. Skin was cleansed, and bandages were applied. COMPLICATIONS: None. DISPOSITION / PLANS: The patient was placed in a supine position and transferred to the recovery area in a stable condition for observation and was discharged from the recovery room after meeting discharge criteria. Home discharge instructions given to the patient by the staff. The patient was reexamined prior to discharge. The patient will schedule for follow-up visit with the pain clinic in 4 weeks duration.
[2021-03-30] MEDS ORDERED: IV FLUID CONTINUATION 850 ML IV ONE (10:51)
--- NOTE | 2021-03-30 10:51 | FL ---
Fluoroscopy History: SI joint injection. SI joint injection. 2 sec fl. 1 image sent.
[2021-03-30 11:09] VITALS: BP 106/70; PULSE 86; RESP 20
== END 2021-03-30 11:28 | disposition home or self-care (01) ==
LOC: ORPAIN 09:02
DX: M53.3 Sacrococcygeal disorders, not elsewhere classified (principal); M54.16 Radiculopathy, lumbar region
CPT/HCPCS: 27096; 81025

== ENCOUNTER → 2021-04-26 | Outpatient (CLI) | payer BC, OTHER ==
--- NOTE | 2021-04-26 10:14 | P.PN ---
Subjective Progress Note Date: 04/26/21 Principal diagnosis: A 40 yr old female with a history of severe and chronic low back pain secondary to lumbar degenerative disc diseases and lumbar spondylosis with facet arthropathy presents today for follow up of a R SI joint injection. Pt developed an urticarial rash of redness, blotchy skin and itchiness the next day. She had to take OTC Benadryl 25mg every 4 hrs for 4 days to relieve the skin irritation. She also admitted to slight chest tightness the next day after the SI joint injection. Pain relief with the R SI joint injection also lasted 4 days. Pain level is currently around 5/10, dull and achy in the lower lumbar spine with radiation to the right leg more than the left leg. States that PT is not recommended for her as she has great pain sensitivity over the lumbar fusion surgery she underwent. Pain is provoked by sitting, bending or touching the spine. Pain is alleviated with injections, medications, heat. She is on Neurontin for 2 weeks thus far. She also takes [place]. Patient denies any side effects of the medication(s), denies excessive drowsine ss or sleepiness, denies suicidal ideation and reports that the current pain medication is helping to control the pain and improve activities of daily living. Patient denies any motor or sensory deficits. Patient denies any fever or night sweats, denies any change in the bowel movements or urination. Physical Examination: -Constitutional: Cooperative. Not in acute distress . -HEENT: Neck is supple. No lymphadenopathy. No thyromegaly. Normal thyroid size. Eyes: No ptosis , no icterus, no photophobia. ENT: No auditory deficits. Normal oropharynx. No Thrush. - Respiratory: Chest clear to auscultations bilaterally. No wheezing. No rhonchi. - Cardiovascular: Regular rate and rhythm. S1 / S2 , no S3 , no S4. - Gastrointestinal: Abdomen soft no tenderness. Bowel sounds positive in all four quadrants. No organomegaly. - Genitourinary: Deferred. - Neurologic: Cranial nerve II to XII intact. No focal neurological deficits. - Psychatric: Alert & oriented x 3. Matching mood & appropriate affect. Judgment and insight intact. - Lymphatic: No Lymphadenopathy. - Musculoskeletal: Cervical spine: Muscle bulk/ tone/ strength in the bilateral upper extremities normal. Facet loading test cervical area positive. Lumbar spine: Motor bulk/ tone/ strength lower extremities , thigh and legs : 5/5 Deep tendon reflexes : Normal Knee Jerk. Normal Ankle Jerk . L3-L5 vertebral body tenderness to palpation Jump reflex over L4-S1 bilateral paraspinal muscles Lumbar Facet Loading Test positive Straight Leg Raise: positive at 30 degree right side/ left side Dave test: positive right side / left side Range of motion: Flexion of the lumbar spine <60 degrees Range of motion: Extension of the lumbar spine <20 degrees Severe tenderness over the Sacroiliac joint: right side / left side Assessment and plan: Chronic low back pain secondary to lumbar degenerative disc disease , lumbar spondylosis with facet arthropathy without myelopathy Recommendation of Toradol/ Lidocaine combination of TPIs over the bilateral L4-L5, L5-S1 Risks/ benefits discussed and pt verbalized understanding Denies use of aspirin or other blood thinners MAPS reviewed and it was appropriate. I have spent 31 minutes on patient care today. Dr Bailon was available by phone for the evaluation of this patient. The time was used to review the medical records including relevant urine studies and Prescription history (MAPs), review of the available imaging, evaluation and examination of the patient, coordination of care with the medical staff and if applicable referring physicians, as well as creation of the medical record PQRS Measure Charge Sheet PQRS Narrative: Smoking Status Former smoker Pain Intensity [Lower Back] 4 Scale Used Numeric (1 - 10) Hx Alcohol Use (MH) Yes: Rare Home Medications: Ambulatory Orders HYDROcodone/APAP 5-325MG [[place] 5] 1 tab PO Q8HR PRN 06/08/16 Cyclobenzaprine [Flexeril] 10 mg PO DIRECTED PRN 02/11/21 Ibuprofen [Motrin Ib] 400 - 600 mg PO DIRECTED PRN 02/11/21 Multivit with Calcium,Iron,Min [Women's Multivitamin] 1 each PO DAILY 02/11/21 Gabapentin [Neurontin] 300 mg PO BID 04/22/21
[2021-04-26 10:22] VITALS: BP 125/78; PULSE 108; RESP 18; TEMP 98.1
== END | disposition home or self-care (01) ==
LOC: PNWHC3 09:10
PROVIDERS: ATTEND Physician Assistant Medical
DX: M47.896 Other spondylosis, lumbar region (principal); M51.36 Other intervertebral disc degeneration, lumbar region
CPT/HCPCS: 99211

== ENCOUNTER → 2021-05-12 | Outpatient (CLI) | payer BC, OTHER ==
--- NOTE | 2021-05-12 09:59 | CT ---
EXAMINATION TYPE: CT lumbar spine wo con DATE OF EXAM: 05/12/2021 COMPARISON: 11/15/2019 HISTORY: 40-year-old female S39.012D, M51.26, Myofascial strain, lumbar spine. Right SI joint pain. TECHNIQUE: Contiguous axial scanning of the lumbar spine without IV contrast. Coronal and sagittal re constructions performed. CT DLP: 954.7 mGycm Automated exposure control for dose reduction was used. FINDINGS: Suspect partially visualized Essure devices at each uterine side of the fundus. Mild degenerative glory nge at the bilateral SI joints. Asymmetric fullness proximal right ureter is unchanged. Postsurgical change of L5-S1 posterior and interbody fusion for bilateral L5 pars defects. There is a fixed grade 1 anterolisthesis, unchanged from prior exam. Facet arthropathy above at L4-L5 with mild bilateral neuroforaminal narrowing, similar to slightly in creased from prior exam. Interval body heights and remaining alignment is maintained. No large focal disc herniation or canal compromise is identified along the other levels. IMPRESSION: 1. SIMILAR POSTSURGICAL CHANGE OF POSTERIOR AND INTERBODY FUSION L5-S1 FOR BILATERAL PARS DEFECTS AND SIMILAR FIXED GRADE 1 ANTEROLISTHESIS. 2. FACET ARTHROPATHY ABOVE THE FUSION AT L4-L5. MILD BILATERAL NEUROFORAMINAL NARROWING HERE IS SIMIL AR TO SLIGHTLY INCREASED. 3. MILD DEGENERATIVE CHANGE OF THE SI JOINTS SUGGESTED.
== END | disposition home or self-care (01) ==
LOC: RADCTMAIN 08:40
PROVIDERS: ATTEND Orthopaedic Surgery Orthopaedic Surgery of the Spine
DX: S39.012D Strain of muscle, fascia and tendon of lower back, subsequent encounter (principal); M51.26 Other intervertebral disc displacement, lumbar region; M43.26 Fusion of spine, lumbar region; M54.16 Radiculopathy, lumbar region; M62.830 Muscle spasm of back; F17.218 Nicotine dependence, cigarettes, with other nicotine-induced disorders; X58.XXXD Exposure to other specified factors, subsequent encounter
CPT/HCPCS: 72131

== ENCOUNTER 2021-05-27 10:12 | Day surgery (SDC) | payer BC, OTHER ==
[2021-05-26 10:22] VITALS: BMI 33.5
[~2021-05-27 10:12] MED LIST changes: +LIDOCAINE 1% (10MG/ML) FOR IV START INTRADERMA PRN
[2021-05-27 10:26] VITALS: TEMP 97.3
[2021-05-27] MEDS ORDERED: KETOROLAC 15 MG/ML 1 ML VIAL IM STA (11:17)
[2021-05-27] MEDS ORDERED: KETOROLAC 30 MG/ML 1 ML VIAL ONE (11:19)
[2021-05-27] MEDS ORDERED: ROPIVACAINE 5MG/ML 20ML VIAL ONE (11:22)
[2021-05-27] MEDS ORDERED: MIDAZOLAM 2 MG/2 ML VIAL ONE (11:22)
[2021-05-27] MEDS ORDERED: KETOROLAC 15 MG/ML 1 ML VIAL ONE (11:22)
[2021-05-27] MEDS ORDERED: fentaNYL (PF) 50 MCG/ML 2 ML AMP ONE (11:22)
--- NOTE | 2021-05-27 11:36 | P.PCN ---
Date of Procedure: 05/27/21 Procedure(s) Performed: Procedure= trigger point injections lumbar paraspinal muscles at L4 5, and L5- S1, bilaterally total of 6 trigger point injected. Preoperative diagnosis= 1-Right sacroiliitis 2-myofascial pain syndrome lumbar paraspinal muscles 3-lumbar facet arthropathy Postoperative diagnosis=Same as preop Diagnosis . Complication = none Condition= stable Anesthesia= moderate sedation with intravenous Versed 2 mg , and fentanyl 100 micrograms . Indication for the procedure= patient complaining of low back pain , examination was positive for multiple trigger point in the lumbar paraspinal muscles ,and patient diagnosed with sacroiliitis and myofascial pain syndrome, for this reas on she was good candidate for trigger point injections. Description of the procedure= procedure risk and benefits discussed with the patient, including but not limited, risk of infection and bleeding, and ALLERGIC reaction to the medication and not complete pain relief and patient agreed with the preceding patient taken to the operating room, placed in prone position or standard monitors applied to the patient then after induction of anesthesia back prepped with chlorhexidine 3 times , then after that. Each of the trigger point injected with 2 mL of the mixture of ropivacaine 0.5%, mixed with 30 mg of Toradol Return to ML of the mixture was injected at each trigger point after negative aspiration, and there was no paresthesia during the injection, injection done by using 25-gauge needle, patient tolerated the procedure well without any complications, total of 6 trigger point injected, 3 trigger point on the right side lumbar paraspinal muscles at L4 5 and L5-S1, and 3 trigger point injected on the left side lumbar paraspinal muscles at L4 5 and L5-S1
[2021-05-27] MEDS ORDERED: IV FLUID CONTINUATION 1,000 ML IV ONE ×2 (11:37)
[2021-05-27 11:44] VITALS: RESP 16
[2021-05-27 12:07] VITALS: BP 104/59; PULSE 89
== END 2021-05-27 12:08 | disposition home or self-care (01) ==
LOC: ORPAIN 10:12
PROVIDERS: ATTEND Specialist
DX: M46.1 Sacroiliitis, not elsewhere classified (principal); M43.26 Fusion of spine, lumbar region; F17.218 Nicotine dependence, cigarettes, with other nicotine-induced disorders; M54.16 Radiculopathy, lumbar region; M62.830 Muscle spasm of back; M51.26 Other intervertebral disc displacement, lumbar region
CPT/HCPCS: 20553; 81025; J2250; J3010; J1885; J2795

== ENCOUNTER → 2021-06-14 | Outpatient (CLI) | payer BC, OTHER ==
--- NOTE | 2021-06-14 09:23 | P.PN ---
Subjective Progress Note Date: 06/14/21 Principal diagnosis: A 40 yr old female with a history of severe and chronic low back pain secondary to lumbar degenerative disc diseases and lumbar spondylosis with facet arthropathy presents today for evaluation status post TPI of the bilateral L4- L5, L5-S1. Patient states she expressed 90% pain relief status post procedure. Pain level is currently at 3 out of 10 in intensity, achy, dull in the bilateral aspects of the lower lumbar spine but escalates as high as 5 out of 10 in intensity with deep palpation of the paraspinal muscles, sitting on hard surfaces such as a chair for periods of 30 minutes or more or lifting. Denies radiation of pain. Pain is alleviated with medications, topicals, injections, heat, yoga exercises, physical therapy which has made it worse, home-based stretching regimen, use of a heating pad, massage and rest. Interventional pain procedures completed include TPI of BL L4-L5, L5- S1. Patient is currently on [place], Neurontin BID, FLexeril prn. Patient denies any side effects of the medication(s), denies excessive drowsiness or sleepiness, denies suicidal ideation and reports that the current pain medication is helping to control the pain and improve activities of daily living. Patient denies any motor or sensory deficits. Patient denies any fever or night sweats, denies any change in the bowel movements or urination. Physical Examination: -Constitutional: Cooperative. Not in acute distress . -HEENT: Neck is supple. No lymphadenopathy. No thyromegaly. Normal thyroid size. Eyes: No ptosis , no icterus, no photophobia. ENT: No auditory deficits. Normal oropharynx. No Thrush. - Respiratory: Chest clear to auscultations bilaterally. No wheezing. No rhonchi. - Cardiovascular: Regular rate and rhythm. S1 / S2 , no S3 , no S4. - Gastrointestinal: Abdomen soft no tenderness. Bowel sounds positive in all four quadrants. No organomegaly. - Genitourinary: Deferred. - Neurologic: Cranial nerve II to XII intact. No focal neurological deficits. - Psychatric: Alert & oriented x 3. Matching mood & appropriate affect. Judgment and insight intact. - Lymphatic: No Lymphadenopathy. - Musculoskeletal: Cervical spine: Muscle bulk/ tone/ strength in the bilateral upper extremities normal. Facet loading test cervical area positive. Lumbar spine: Motor bulk/ tone/ strength lower extremities , thigh and legs : 5/5 Deep tendon reflexes : Normal Knee Jerk. Normal Ankle Jerk . Vertebral body tenderness to palpation over L5 Lumbar Facet Loading Test positive Straight Leg Raise: positive at 30 degrees right side/ left side Gaenslen's Test positive Sacral spine : Severe tenderness over the Sacroiliac joint: right side / left side Range of motion: Flexion of the lumbar spine <60 degrees Range of motion: Extension of the lumbar spine <20 degrees Gaenslen's Test positive Dave test: positive right side / left side Assessment and plan: Chronic low back pain secondary to lumbar degenerative disc disease , lumbar spondylosis with facet arthropathy without myelopathy Patient expressed satisfaction with TPI and may return to our clinic on an as needed basis. All patient questions answered MAPS reviewed and it was appropriate. I have spent 31 minutes on patient care today. Dr Bailon was available by phone for the evaluation of this patient. The time was used to review the medical records including relevant urine studies and Prescription history (MAPs), review of the available imaging, evaluation and examination of the patient, coordination of care with the medical staff and if applicable referring physicians, as well as creation of the medical record PQRS Measure Charge Sheet PQRS Narrative: Smoking Status Former smoker Hx Alcohol Use (MH) Yes: Rare Home Medications: Ambulatory Orders HYDROcodone/APAP 5-325MG [[place] 5] 1 tab PO Q8HR PRN 06/08/16 Cyclobenzaprine [Flexeril] 10 mg PO TID PRN 02/11/21 Ibuprofen [Motrin Ib] 400 - 600 mg PO DIRECTED PRN 02/11/21 Multivit with Calcium,Iron,Min [Women's Multivitamin] 1 each PO DAILY 02/11/21 Gabapentin [Neurontin] 300 mg PO BID 04/22/21
[2021-06-14 09:28] VITALS: BP 121/82; PULSE 100; RESP 18; TEMP 98.2
== END | disposition home or self-care (01) ==
LOC: PNWHC3 08:55
PROVIDERS: ATTEND Physician Assistant Medical
DX: M47.896 Other spondylosis, lumbar region (principal); M51.36 Other intervertebral disc degeneration, lumbar region; M46.96 Unspecified inflammatory spondylopathy, lumbar region
CPT/HCPCS: 99211

== ENCOUNTER 2021-07-05 18:44 | Emergency (ER) | payer BC, OTHER ==
[2021-07-05 19:06] VITALS: BP 125/76; TEMP 98.6
--- NOTE | 2021-07-05 22:18 | ED ---
General Adult HPI - General Chief complaint: Upper Respiratory Infection Stated complaint: YOVANY Time Seen by Provider: 07/05/21 21:47 Source: patient, RN notes reviewed Mode of arrival: ambulatory Limitations: no limitations - History of Present Illness Initial comments: 40-year-old female presents to the emergency department for evaluation of shortness of breath for the past few days. Patient states she feels like she cannot take a full breath, but denies pain with breathing. Patient states she does feel dizzy occasionally. Reports occasional dry cough. No known sick exposures. Denies any recent travel or prolonged immobilization, however states she has been less active than usual due to ongoing back pain. Denies fever, chills, headache, chest pain, abdominal pain, nausea, vomiting, diarrhea, dysuria, or hematuria. - Related Data Home Medications Medication Instructions Recorded Confirmed HYDROcodone/APAP 5-325MG [[place] 5] 1 tab PO BID PRN 06/08/16 07/05/21 Cyclobenzaprine [Flexeril] 10 mg PO TID PRN 02/11/21 07/05/21 Gabapentin [Neurontin] 300 mg PO BID 04/22/21 07/05/21 Nicotine 21Mg/24Hr Patch [Habitrol] 1 patch TRANSDERM DAILY 07/05/21 07/05/21 Allergies Allergy/AdvReac Type Severity Reaction Status Date / Time methylprednisolone Allergy Unknown Swelling Verified 07/05/21 19:03 of face, itching, red face. amoxicillin [Amoxicillin] Allergy HIVES Verified 07/05/21 19:03 prednisone Allergy SOB Verified 07/05/21 19:03 Milk Containing Products AdvReac Unknown Diarrhea Verified 07/05/21 19:03 steroid Allergy Swelling Uncoded 07/05/21 19:03 Review of Systems ROS Statement: Those systems with pertinent positive or pertinent negative responses have been documented in the HPI. ROS Other: All systems not noted in ROS Statement are negative. Past Medical History Past Medical History: No Reported History Additional Past Medical History / Comment(s): Seasonal allergies, IBS, back pain with radiation down right leg. History of Any Multi-Drug Resistant Organisms: None Reported Past Surgical History: Back Surgery, Orthopedic Surgery Additional Past Surgical History / Comment(s): Posterior lumbar decompression and fusion, transforaminal lumbar interbody fusion L5-S1 with cell saver, graft and NIM cord monitoring, ESSURE PROCEDURE, PAIN INJECTIONS to low back, ARTHROSCOPY LEFT KNEE. Past Anesthesia/Blood Transfusion Reactions: Previous Problems w/ Anesthesia, Postoperative Nausea & Vomiting (PONV) Additional Past Anesthesia/Blood Transfusion Reaction / Comment(s): Pt has never recieved blood. Past Psychological History: ADD/ADHD Smoking Status: Former smoker Past Alcohol Use History: None Reported Past Drug Use History: None Reported - Past Family History Mother Additional Family Medical History / Comment(s): Hysterectomy for pre-cancer. Father Family Medical History: No Reported History Additional Family Medical History / Comment(s): Father is an alcoholic per pt. General Exam Limitations: no limitations (Well-developed, well-nourished female in no acute distress. Initial temperature 98.6, pulse 116, respirations 20, blood pressure 125/76, pulse ox 100% on room air.) General appearance: alert, in no apparent distress Eye exam: Present: normal appearance, PERRL, EOMI. Absent: scleral icterus, conjunctival injection ENT exam: Present: normal exam, normal oropharynx, mucous membranes moist, TM's normal bilaterally Respiratory exam: Present: normal lung sounds bilaterally. Absent: respiratory distress, wheezes, rales, rhonchi, stridor, chest wall tenderness Cardiovascular Exam: Present: regular rate, normal rhythm, normal heart sounds. Absent: systolic murmur, diastolic murmur, rubs, gallop, clicks GI/Abdominal exam: Present: soft, normal bowel sounds. Absent: distended, tenderness, guarding, rebound, rigid Neurological exam: Present: alert, oriented X3, CN II-XII intact Psychiatric exam: Present: flat affect Skin exam: Present: warm, dry, intact, normal color Course Vital Signs 07/05/21 07/05/21 07/06/21 19:03 22:47 01:32 Temperature 98.6 F Pulse Rate 116 H 100 89 Respiratory 20 18 Rate Blood Pressure 125/76 O2 Sat by Pulse 100 100 Oximetry - Reevaluation(s) Reevaluation #1: 07/05/21 23:22 Patient updated on results, though CBC is pending. States she continues to have periodic episodes of shortness of breath though is resting comfortably. Patient does have a home pulse ox, albuterol inhaler, and nebulizer. States she is not getting any relief with her inhaler, however has not tried the nebulizer. Medical Decision Making - Medical Decision Making 40-year-old female with a past medical history of chronic low back pain presents to the emergency department for evaluation of difficulty breathing. Upon exam, patient is well-appearing and in no acute distress. Vital signs are stable. Lungs sounds are clear to auscultation. Patient does have a dry cough. Co ntinuous pulse oximeter measures room air saturation greater than 95% throughout her stay. Chest x-ray is unremarkable. Laboratory studies were reviewed showing mild leukocytosis, though this is suspected to be reactive versus infectious as patient is afebrile and not tachycardic. Findings were reviewed with patient. Encouraged to use her home medications to treat her symptoms. Instructed to follow up with her PCP by and of the week. Return parameters discussed in detail. Patient verbalizes understanding. Attending: Juan. - Lab Data Result diagrams: 07/05/21 22:43 07/05/21 22:43 Lab Results 07/05/21 07/05/21 07/05/21 Range/Units 22:43 22:43 22:43 WBC 14.7 H (3.8-10.6) k/uL RBC 4.70 (3.80-5.40) m/uL Hgb 13.4 (11.4-16.0) gm/dL Hct 41.4 (34.0-46.0) % MCV 88.2 (80.0-100.0) fL MCH 28.6 (25.0-35.0) pg MCHC 32.4 (31.0-37.0) g/dL RDW 12.1 (11.5-15.5) % Plt Count 374 (150-450) k/uL MPV 7.6 Neutrophils % 69 % Lymphocytes % 22 % Monocytes % 5 % Eosinophils % 2 % Basophils % 1 % Neutrophils # 10.1 H (1.3-7.7) k/uL Lymphocytes # 3.2 (1.0-4.8) k/uL Monocytes # 0.8 (0-1.0) k/uL Eosinophils # 0.3 (0-0.7) k/uL Basophils # 0.1 (0-0.2) k/uL D-Dimer 0.25 (<0.60) mg/L FEU Sodium (137-145) mmol/L Potassium (3.5-5.1) mmol/L Chloride (98-107) mmol/L Carbon Dioxide (22-30) mmol/L Anion Gap mmol/L BUN (7-17) mg/dL Creatinine (0.52-1.04) mg/dL Est GFR (CKD-EPI)AfAm (>60 ml/min/1.73 sqM) Est GFR (CKD-EPI)NonAf (>60 ml/min/1.73 sqM) Glucose (74-99) mg/dL Calcium (8.4-10.2) mg/dL Total Bilirubin (0.2-1.3) mg/dL AST (14-36) U/L ALT (4-34) U/L Alkaline Phosphatase (38-126) U/L Troponin I (0.000-0.034) ng/mL Total Protein (6.3-8.2) g/dL Albumin (3.5-5.0) g/dL Urine Color Yellow Urine Appearance Clear (Clear) Urine pH 7.5 (5.0-8.0) Ur Specific Raymond 1.012 (1.001-1.035) Urine Protein Negative (Negative) Urine Glucose (UA) Negative (Negative) Urine Ketones Negative (Negative) Urine Blood Moderate H (Negative) Urine Nitrite Negative (Negative) Urine Bilirubin Negative (Negative) Urine Urobilinogen <2.0 (<2.0) mg/dL Ur Leukocyte Esterase Negative (Negative) Urine RBC 32 H (0-5) /hpf Urine WBC 1 (0-5) /hpf Ur Squamous Epith Cells 1 (0-4) /hpf Urine Bacteria Rare H (None) /hpf Urine Mucus Rare H (None) /hpf Coronavirus (PCR) (Not Detectd) 07/05/21 07/05/21 07/05/21 Range/Units 22:43 22:43 22:43 WBC (3.8-10.6) k/uL RBC (3.80-5.40) m/uL Hgb (11.4-16.0) gm/dL Hct (34.0-46.0) % MCV (80.0-100.0) fL MCH (25.0-35.0) pg MCHC (31.0-37.0) g/dL RDW (11.5-15.5) % Plt Count (150-450) k/uL MPV Neutrophils % % Lymphocytes % % Monocytes % % Eosinophils % % Basophils % % Neutrophils # (1.3-7.7) k/uL Lymphocytes # (1.0-4.8) k/uL Monocytes # (0-1.0) k/uL Eosinophils # (0-0.7) k/uL Basophils # (0-0.2) k/uL D-Dimer (<0.60) mg/L FEU Sodium 138 (137-145) mmol/L Potassium 3.5 (3.5-5.1) mmol/L Chloride 105 (98-107) mmol/L Carbon Dioxide 23 (22-30) mmol/L Anion Gap 10 mmol/L BUN 12 (7-17) mg/dL Creatinine 0.72 (0.52-1.04) mg/dL Est GFR (CKD-EPI)AfAm >90 (>60 ml/min/1.73 sqM) Est GFR (CKD-EPI)NonAf >90 (>60 ml/min/1.73 sqM) Glucose 89 (74-99) mg/dL Calcium 9.5 (8.4-10.2) mg/dL Total Bilirubin 0.6 (0.2-1.3) mg/dL AST 22 (14-36) U/L ALT 16 (4-34) U/L Alkaline Phosphatase 93 (38-126) U/L Troponin I <0.012 (0.000-0.034) ng/mL Total Protein 7.7 (6.3-8.2) g/dL Albumin 4.6 (3.5-5.0) g/dL Urine Color Urine Appearance (Clear) Urine pH (5.0-8.0) Ur Specific Raymond (1.001-1.035) Urine Protein (Negative) Urine Glucose (UA) (Negative) Urine Ketones (Negative) Urine Blood (Negative) Urine Nitrite (Negative) Urine Bilirubin (Negative) Urine Urobilinogen (<2.0) mg/dL Ur Leukocyte Esterase (Negative) Urine RBC (0-5) /hpf Urine WBC (0-5) /hpf Ur Squamous Epith Cells (0-4) /hpf Urine Bacteria (None) /hpf Urine Mucus (None) /hpf Coronavirus (PCR) Not Detected (Not Detectd) - Radiology Data Radiology results: report reviewed, image reviewed Two-view chest x-ray was obtained. Report was reviewed in its entirety. Impression per Dr. Zambrano is normal chest. No change. Disposition Clinical Impression: Upper respiratory infection Disposition: HOME SELF-CARE Condition: Stable Instructions (If sedation given, give patient instructions): Upper Respiratory Infection (ED) Additional Instructions: Rest. Increase fluids. Use albuterol via inhaler or nebulizer if needed for shortness of breath. Follow up with your PCP for a recheck this week. Return to the emergency department with any new, worsening, or concerning symptoms. Is patient prescribed a controlled substance at d/c from ED?: No Referrals: Nagi Strickland DO [Primary Care Provider] - 1-2 days Time of Disposition: 00:22
--- NOTE | 2021-07-05 22:44 | XR ---
EXAMINATION TYPE: XR chest 2V DATE OF EXAM: 07/05/2021 COMPARISON: 06/28/2019 HISTORY: Short of breath TECHNIQUE: FINDINGS: Heart and mediastinum are normal. Lungs are clear. Diaphragm is normal. Bony thorax appears normal. IMPRESSION: Normal chest. No change.
[2021-07-05 23:04] LABS: Basophils # (A) 0.1 k/uL (0-0.2); Basophils % (A) 1 %; Eosinophils # (A) 0.3 k/uL (0-0.7); Eosinophils % (A) 2 %; HCT 41.4 % (34.0-46.0); HGB 13.4 gm/dL (11.4-16.0); Lymphocytes # (A) 3.2 k/uL (1.0-4.8); Lymphocytes % (A) 22 %; MCH 28.6 pg (25.0-35.0); MCHC 32.4 g/dL (31.0-37.0); MCV 88.2 fL (80.0-100.0); Mean Platelet Volume 7.6; Monocytes # (A) 0.8 k/uL (0-1.0); Monocytes % (A) 5 %; Neutrophils # (A) 10.1 k/uL (1.3-7.7); Neutrophils % (A) 69 %; Platelet Count 374 k/uL (150-450); RDW 12.1 % (11.5-15.5); WBC 14.7 k/uL (3.8-10.6)
[2021-07-05 23:46] LABS: ALT 16 U/L (4-34); AST 22 U/L (14-36); African American GFR (CKD) >90 (>60 ml/min/1.73 sqM); Albumin 4.6 g/dL (3.5-5.0); Alkaline Phosphatase 93 U/L (38-126); Anion Gap 10 mmol/L; Blood Urea Nitrogen 12 mg/dL (7-17); Calcium 9.5 mg/dL (8.4-10.2); Carbon Dioxide 23 mmol/L (22-30); Chloride 105 mmol/L (98-107); Glucose 89 mg/dL (74-99); Non-African American GFR(CKD) >90 (>60 ml/min/1.73 sqM); Potassium 3.5 mmol/L (3.5-5.1); Sodium 138 mmol/L (137-145); Total Bilirubin 0.6 mg/dL (0.2-1.3); Total Protein 7.7 g/dL (6.3-8.2)
[2021-07-05 23:50] LABS: Appearance,Urine Clear (Clear); Bacteria,Urine Rare /hpf; Bilirubin,Urine Negative (Negative); Blood,Urine Moderate (Negative); Color,Urine Yellow; Glucose,Urine (UA) Negative (Negative); Ketones,Urine Negative (Negative); Leukocyte Esterase,Urine Negative (Negative); Mucus,Urine Rare /hpf; Nitrite,Urine Negative (Negative); PH, Urine 7.5 (5.0-8.0); Protein,Urine Negative (Negative); RBC,Urine 32 /hpf (0-5); Specific Gravity,Urine 1.012 (1.001-1.035); Squamous Epithelial Cell,Urine 1 /hpf (0-4); Urobilinogen,Urine <2.0 mg/dL (<2.0); WBC,Urine 1 /hpf (0-5)
[2021-07-06 01:33] VITALS: PULSE 89; RESP 18
== END 2021-07-06 01:33 | disposition home or self-care (01) ==
LOC: EC 18:44
DX: J06.9 Acute upper respiratory infection, unspecified (principal); Z20.822 Contact with and (suspected) exposure to COVID-19; Z87.891 Personal history of nicotine dependence; Z88.8 Allergy status to other drugs, medicaments and biological substances; Z88.0 Allergy status to penicillin; Z91.011 Allergy to milk products
CPT/HCPCS: 36415; 71046; 80053; 81001; 84484; 85025; 85379; 87635; 99285

== ENCOUNTER → 2021-12-09 | Outpatient (CLI) | payer BC, OTHER ==
[2021-12-09 10:30] VITALS: BP 130/83; PULSE 96; RESP 16; TEMP 97.6
--- NOTE | 2021-12-09 10:38 | P.PN ---
Subjective Progress Note Date: 12/09/21 This is a 41-year-old lady with history of lumbar postlaminectomy pain synd nidia and myofascial pain. The patient tripped on her daughter's Touhy which increased her lower back pain significantly. She did have trigger point injection last time with good results. The patient states that she is ALLERGIC to steroids with difficulty breathing and she cannot receive any injections with steroids. Her pain gets worse with standing and with ambulation. Patient denies new-onset weakness, bowel/bladder incontinence, or any other signs or symptoms of cauda equina syndrome. There are no signs of acute intoxication, and no indications of medication diversion or overuse. In addition to above, 13-point review of systems is also negative for chest pain, shortness of breath, changes in vision, changes in hearing, new onset weakness, abdominal pain, diarrhea, extreme fatigue, malaise, fever, skin changes, homicidal or suicidal ideation, or bowel or bladder incontinence. Vital Signs: Reviewed in EMR Gen: AAOx3, NAD HEENT: PERRLA,hearing grossly normal Pulm: resp unlabored Neck: supple, trachea midline Neuro exam of the lower extremities: Straight leg raising test: Jorden's test: Positive on the right side Range of motion of the lumbar spine: Facet loading test: Tenderness in the paravertebral musculature: Significant tenderness in the lumbar paravertebral musculature on the right side and also around the right sacroiliac joint in the upper buttock area Neuro: CN II-XII grossly intact, Imaging: Reviewed in EMR/chart Assessment: Lumbar postlaminectomy pain syndrome Myofascial pain in the lower lumbar and upper buttock area on the right side Right sacroiliitis ALLERGY to steroids Tobacco dependence Plan: 1. Explanation: When patients on opioids, opioid and psychological risk scores were reviewed. Diagnoses, prognoses, and multiple treatment options including but not limited to physical therapy, interventional therapies, adjuvant medical therapies, narcotic medication therapies, and surgery were discussed with the patient and all questions were answered to the patient's satisfaction. 2. Opioid agreement:When patients are prescribed opoids through our clinic, opioid agreement is signed with the patient and the patient is warned not to use opioids while driving or before driving and not to combine opioids with benzodiazepines or alcohol. 3. Counseling: When patient is smoking or obese, the patient was counseled extensively on SMOKING CESSATION, BODY MASS INDEX, EXERCISE. Specifically, the patient was instructed regarding the importance of smoking cessation, obesity, and exercise in the context of both chronic pain and overall health. 4. Procedures: We will schedule her for trigger point injection in the lower lumbar paravertebral musculature on the right side and also the upper buttock area including gluteus kathy. We will avoid using steroids and we will use only local anesthetic for this injection due to the patient's ALLERGIC reaction to steroids. The patient also may benefit from a right sacroiliac joint steroid injection however because of her ALLERGIC reaction to steroids we cannot do this procedure. 5. Consultations: None 6. Investigations: None 7. Medications: None prescribed today 8. Disposition: Proceed with the above-mentioned procedure as soon as possible 9. Maps were reviewed and were appropriate. Objective - Vital Signs Vital signs: Vital Signs Temp 97.6 F 12/09/21 10:25 Pulse 96 12/09/21 10:25 Resp 16 12/09/21 10:25 BP 130/83 12/09/21 10:25 Pulse Ox 98 12/09/21 10:25 FiO2 Intake & Output 12/08/21 12/09/21 12/09/21 18:59 06:59 18:59 Weight 96.162 kg
== END ==
LOC: PNWHC3 10:08
PROVIDERS: ATTEND Anesthesiology
DX: M51.26 Other intervertebral disc displacement, lumbar region (principal); M51.14 Intervertebral disc disorders with radiculopathy, thoracic region; M96.1 Postlaminectomy syndrome, not elsewhere classified; M46.1 Sacroiliitis, not elsewhere classified; M79.18 Myalgia, other site; Z88.8 Allergy status to other drugs, medicaments and biological substances; F17.200 Nicotine dependence, unspecified, uncomplicated
CPT/HCPCS: 99211

== ENCOUNTER 2022-01-28 15:31 | Emergency (ER) | payer BC, OTHER ==
[2022-01-28 15:44] VITALS: RESP 18; TEMP 98.1
[2022-01-28 16:15] LABS: Basophils # (A) 0.1 k/uL (0-0.2); Basophils % (A) 1 %; Eosinophils # (A) 0.3 k/uL (0-0.7); Eosinophils % (A) 3 %; HCT 42.8 % (34.0-46.0); HGB 14.2 gm/dL (11.4-16.0); Lymphocytes # (A) 2.5 k/uL (1.0-4.8); Lymphocytes % (A) 23 %; MCH 28.5 pg (25.0-35.0); MCHC 33.2 g/dL (31.0-37.0); MCV 85.8 fL (80.0-100.0); Mean Platelet Volume 8.3; Monocytes # (A) 0.7 k/uL (0-1.0); Monocytes % (A) 6 %; Neutrophils # (A) 7.4 k/uL (1.3-7.7); Neutrophils % (A) 66 %; Platelet Count 368 k/uL (150-450); RBC 4.99 m/uL (3.80-5.40); RDW 12.3 % (11.5-15.5); WBC 11.3 k/uL (3.8-10.6)
[2022-01-28 16:27] LABS: ALT 25 U/L (4-34); AST 21 U/L (14-36); African American GFR (CKD) >90 (>60 ml/min/1.73 sqM); Albumin 4.7 g/dL (3.5-5.0); Alkaline Phosphatase 86 U/L (38-126); Anion Gap 11 mmol/L; Blood Urea Nitrogen 10 mg/dL (7-17); Calcium 10.1 mg/dL (8.4-10.2); Carbon Dioxide 27 mmol/L (22-30); Chloride 102 mmol/L (98-107); Glucose 96 mg/dL (74-99); Non-African American GFR(CKD) >90 (>60 ml/min/1.73 sqM); Potassium 3.9 mmol/L (3.5-5.1); Sodium 140 mmol/L (137-145); Total Bilirubin 0.4 mg/dL (0.2-1.3); Total Protein 7.6 g/dL (6.3-8.2)
[2022-01-28 16:48] LABS: Amorphous Sediment,Urine Rare /hpf; Appearance,Urine Cloudy (Clear); Bacteria,Urine Rare /hpf; Bilirubin,Urine Negative (Negative); Blood,Urine Moderate (Negative); Color,Urine Yellow; Glucose,Urine (UA) Negative (Negative); Ketones,Urine Negative (Negative); Leukocyte Esterase,Urine Negative (Negative); Mucus,Urine Many /hpf; Nitrite,Urine Negative (Negative); Protein,Urine Trace (Negative); RBC,Urine 35 /hpf (0-5); Squamous Epithelial Cell,Urine 2 /hpf (0-4); Urobilinogen,Urine <2.0 mg/dL (<2.0); WBC,Urine 4 /hpf (0-5)
[2022-01-28] MEDS ORDERED: SODIUM CHLORIDE 0.9% 1,000 ML IV STA (19:16)
[2022-01-28] MEDS ORDERED: KETOROLAC 15 MG/ML 1 ML VIAL IVP STA (19:16)
[2022-01-28] MEDS ORDERED: ONDANSETRON 4 MG/2 ML VIAL IVP STA (19:16)
--- NOTE | 2022-01-28 19:24 | ED ---
General Adult HPI - General Chief complaint: Abdominal Pain Stated complaint: abd pain Time Seen by Provider: 01/28/22 19:06 Source: patient, RN notes reviewed Mode of arrival: ambulatory Limitations: no limitations - History of Present Illness Initial comments: This is a 41 year old female who presents to the emergency department with complaints of right lower quadrant abdominal pain, onset this morning. States the pain has remained localized and is non-radiating. Reports accompanying mild nausea. Pain is worsened by ambulation and palpation of the affected region. No particular alleviating factors. Reports one episode of diarrhea. Was sent over by urgent care for appendicitis evaluation. Denies fever, chills, headache, chest pain, shortness of breath, vomiting, dysuria, or hematuria. - Related Data Home Medications Medication Instructions Recorded Confirmed HYDROcodone/APAP 5-325MG [[place] 5] 1 tab PO BID PRN 06/08/16 01/11/22 Gabapentin [Neurontin] 300 mg PO BID 04/22/21 01/11/22 Cyclobenzaprine [Flexeril] 10 mg PO TID 01/10/22 01/11/22 Previous Rx's Medication Instructions Recorded Ondansetron Odt [Zofran Odt] 4 mg PO Q8HR PRN #10 tab 01/28/22 Allergies Allergy/AdvReac Type Severity Reaction Status Date / Time methylprednisolone Allergy Unknown Swelling Verified 01/11/22 08:37 of face, itching, red face. amoxicillin [Amoxicillin] Allergy HIVES Verified 01/11/22 08:37 prednisone Allergy SOB Verified 01/11/22 08:37 Milk Containing Products AdvReac Unknown Diarrhea Verified 01/11/22 08:37 steroid Allergy Swelling Uncoded 01/11/22 08:37 Review of Systems ROS Statement: Those systems with pertinent positive or pertinent negative responses have been documented in the HPI. ROS Other: All systems not noted in ROS Statement are negative. Past Medical History Past Medical History: No Reported History Additional Past Medical History / Comment(s): Seasonal allergies, IBS, back pain with radiation down right leg. History of Any Multi-Drug Resistant Organisms: None Reported Past Surgical History: Back Surgery, Orthopedic Surgery Additional Past Surgical History / Comment(s): Posterior lumbar decompression and fusion, transforaminal lumbar interbody fusion L5-S1 with cell saver, graft and NIM cord monitoring, ESSURE PROCEDURE, PAIN INJECTIONS to low back, ARTHROSCOPY LEFT KNEE. Past Anesthesia/Blood Transfusion Reactions: Previous Problems w/ Anesthesia, Postoperative Nausea & Vomiting (PONV) Additional Past Anesthesia/Blood Transfusion Reaction / Comment(s): Pt has never recieved blood. Past Psychological History: ADD/ADHD, Anxiety, Depression Smoking Status: Current every day smoker Past Alcohol Use History: Occasional Past Drug Use History: None Reported - Past Family History Mother Additional Family Medical History / Comment(s): Hysterectomy for pre-cancer. Father Family Medical History: No Reported History Additional Family Medical History / Comment(s): Father is an alcoholic per pt. General Exam Limitations: no limitations (Well-developed, well-nourished female in no acute distress, though does appear uncomfortable. Initial temperature 98.1, pulse 107, respirations 18, blood pressure 120/86, pulse ox 98% on room air.) General appearance: alert, in no apparent distress ENT exam: Present: normal oropharynx, mucous membranes moist Respiratory exam: Present: normal lung sounds bilaterally. Absent: respiratory distress, wheezes, rales, rhonchi, stridor Cardiovascular Exam: Present: regular rate, normal rhythm, tachycardia, normal heart sounds. Absent: systolic murmur, diastolic murmur, rubs, gallop, clicks GI/Abdominal exam: Present: soft, tenderness (RLQ), guarding (RLQ), normal bowel sounds, other (belching and passing gas). Absent: distended, rebound, rigid Back exam: Absent: CVA tenderness (R), CVA tenderness (L) Neurological exam: Present: alert, oriented X3, CN II-XII intact, normal gait Psychiatric exam: Present: normal affect, normal mood Skin exam: Present: warm, dry, intact, normal color. Absent: rash Course Vital Signs 01/28/22 01/28/22 01/28/22 15:41 20:46 21:56 Temperature 98.1 F Pulse Rate 107 H 85 86 Respiratory 18 18 Rate Blood Pressure 128/86 121/86 O2 Sat by Pulse 98 99 100 Oximetry - Reevaluation(s) Reevaluation #1: 01/28/22 20:35 Patient is updated on results of CT and laboratory studies. Continues to have intermittent discomfort. Minimal relief with Toradol therefore will be given a dose of Dilaudid. Did discuss POC to discharge home with outpatient follow-up. Patient is agreeable. Medical Decision Making - Medical Decision Making This is a pleasant 41-year-old female who presents to the emergency department for evaluation of right lower quadrant pain. Upon exam, patient appears moderately uncomfortable but in no acute distress. Right lower quadrant is tender to the touch. Vital signs are stable. Laboratory studies were obtained and are unremarkable. CT of the abdomen and pelvis shows no acute findings. She was given IV fluids and pain medicine with improvement. She'll be discharged home to follow up with her PCP for recheck. Zofran is prescribed for nausea. Return parameters were discussed in detail. Patient verbalizes understanding and agrees with this plan. Attending: Michael - Lab Data Result diagrams: 01/28/22 15:48 01/28/22 15:48 Lab Results 01/28/22 01/28/22 01/28/22 Range/Units 15:48 15:48 15:48 WBC 11.3 H (3.8-10.6) k/uL RBC 4.99 (3.80-5.40) m/uL Hgb 14.2 (11.4-16.0) gm/dL Hct 42.8 (34.0-46.0) % MCV 85.8 (80.0-100.0) fL MCH 28.5 (25.0-35.0) pg MCHC 33.2 (31.0-37.0) g/dL RDW 12.3 (11.5-15.5) % Plt Count 368 (150-450) k/uL MPV 8.3 Neutrophils % 66 % Lymphocytes % 23 % Monocytes % 6 % Eosinophils % 3 % Basophils % 1 % Neutrophils # 7.4 (1.3-7.7) k/uL Lymphocytes # 2.5 (1.0-4.8) k/uL Monocytes # 0.7 (0-1.0) k/uL Eosinophils # 0.3 (0-0.7) k/uL Basophils # 0.1 (0-0.2) k/uL Sodium 140 (137-145) mmol/L Potassium 3.9 (3.5-5.1) mmol/L Chloride 102 (98-107) mmol/L Carbon Dioxide 27 (22-30) mmol/L Anion Gap 11 mmol/L BUN 10 (7-17) mg/dL Creatinine 0.70 (0.52-1.04) mg/dL Est GFR (CKD-EPI)AfAm >90 (>60 ml/min/1.73 sqM) Est GFR (CKD-EPI)NonAf >90 (>60 ml/min/1.73 sqM) Glucose 96 (74-99) mg/dL Calcium 10.1 (8.4-10.2) mg/dL Total Bilirubin 0.4 (0.2-1.3) mg/dL AST 21 (14-36) U/L ALT 25 (4-34) U/L Alkaline Phosphatase 86 (38-126) U/L Total Protein 7.6 (6.3-8.2) g/dL Albumin 4.7 (3.5-5.0) g/dL Urine Color Yellow Urine Appearance Cloudy H (Clear) Urine pH 8.0 (5.0-8.0) Ur Specific [place] 1.020 (1.001-1.035) Urine Protein Trace H (Negative) Urine Glucose (UA) Negative (Negative) Urine Ketones Negative (Negative) Urine Blood Moderate H (Negative) Urine Nitrite Negative (Negative) Urine Bilirubin Negative (Negative) Urine Urobilinogen <2.0 (<2.0) mg/dL Ur Leukocyte Esterase Negative (Negative) Urine RBC 35 H (0-5) /hpf Urine WBC 4 (0-5) /hpf Ur Squamous Epith Cells 2 (0-4) /hpf Amorphous Sediment Rare H (None) /hpf Urine Bacteria Rare H (None) /hpf Urine Mucus Many H (None) /hpf - Radiology Data Radiology results: report reviewed, image reviewed CT of the abdomen and pelvis with contrast was obtained. Report was reviewed in its entirety. Impression per Dr. Mustafa is negative computed tomography scan abdomen and pelvis. Normal appendix. Disposition Clinical Impression: Abdominal pain, Nausea Disposition: HOME SELF-CARE Condition: Stable Instructions (If sedation given, give patient instructions): Abdominal Pain (ED) Additional Instructions: Rest. Increase fluids. Take Zofran if needed for nausea. May take Tylenol or Naprosyn for discomfort. Follow-up with your PCP for a recheck on Monday. Return to the emergency department if pain worsens, you develop a fever, or persistent vomiting. Prescriptions: Ondansetron Odt [Zofran Odt] 4 mg PO Q8HR PRN #10 tab PRN Reason: Nausea Is patient prescribed a controlled substance at d/c from ED?: No Referrals: Nagi Strickland DO [Primary Care Provider] - 1-2 days Time of Disposition: 21:35
--- NOTE | 2022-01-28 20:08 | CT ---
EXAMINATION TYPE: CT abdomen pelvis w con DATE OF EXAM: 01/28/2022 COMPARISON: 05/06/2016 HISTORY: RLQ pain. R/O appendicitis. CT DLP: 1422.7 mGycm Automated exposure control for dose reduction was used. CONTRAST: Performed with IV Contrast, patient injected with 100cc mL of Isovue 300. Images obtained from the diaphragm to the floor the pelvis with the IV contrast. Lung bases are clear. No pleural effusion. Heart size is normal. No pericardial effusion. Liver spleen stomach pancreas appear intact. The bile ducts are not dilated. Gallbladder appears norm al. There is no adrenal mass. Kidneys show satisfactory contrast opacification. There is no hydroneph rosis. The ureters are not dilated. Bladder distends smoothly. No pelvic mass. No inguinal hernia. Ut erus is anteverted. There is posterior fusion surgery at L5-S1. Lumbar spine appears intact. No compr ession fracture. There is bilateral tubal implants. Appendix is posterior and appears normal. IMPRESSION: Negative CT scan abdomen and pelvis. Normal appendix.
[2022-01-28] MEDS ORDERED: HYDROmorphone 0.5 MG/0.5 ML SYRINGE IVP STA (20:33)
[2022-01-28] MEDS ORDERED: ONDANSETRON 4 MG ODT STARTER PACK 2 TAB BTL PO STA (21:43)
[2022-01-28] MEDS ORDERED: ACET/COD 300 MG/30 MG STARTER PACK 6 TAB BTL PO STA (21:43)
[2022-01-28 21:56] VITALS: BP 121/86; PULSE 86
== END 2022-01-28 22:10 | disposition home or self-care (01) ==
LOC: EC 15:31
DX: R10.31 Right lower quadrant pain (principal); F41.9 Anxiety disorder, unspecified; F32.A Depression, unspecified; F17.200 Nicotine dependence, unspecified, uncomplicated; Z88.8 Allergy status to other drugs, medicaments and biological substances; Z91.011 Allergy to milk products
CPT/HCPCS: 36415; 80053; 85025; 81001; 74177; 99284; 96374; 96375 ×2; 96361 ×3; J2405; J1885; S0119; J1170; Q9967

== ENCOUNTER → 2022-02-10 | Outpatient (CLI) | payer BC, OTHER ==
--- NOTE | 2022-02-10 09:56 | US ---
EXAMINATION TYPE: US pelvic complete DATE OF EXAM: 02/10/2022 COMPARISON: CT 01/28/2022 CLINICAL HISTORY: R10.31 Right lower quadrant pain R10.2. Right pelvic pain for 1.5 weeks. TECHNIQUE: . Transabdominal sonographic images of the pelvis were acquired. Transvaginal sonographi c images were medically necessary to better assess the following anatomy: Date of LMP: 02/03/2022 EXAM MEASUREMENTS: Uterus: 7.6 x 4.1 x 5.1 cm Endometrial Stripe: 1.0 cm Right Ovary: 1.9 x 1.9 x 1.1 cm Left Ovary: 2.3 x 1.7 x 1.8 cm 1. Uterus: Anteverted wnl 2. Endometrium: wnl 3. Right Ovary: wnl 4. Left Ovary: wnl 5. Bilateral Adnexa: Essure device visualized bilaterally. 6. Posterior cul-de-sac: wnl Urinary bladder is sonolucent. Posterior wall is normal. IMPRESSION: 1. No suspicious acute changes pelvic ultrasound.
== END | disposition home or self-care (01) ==
LOC: RADUSWWP 09:06
PROVIDERS: ATTEND Family Medicine
DX: R10.31 Right lower quadrant pain (principal); R10.2 Pelvic and perineal pain
CPT/HCPCS: 76830; 76856

== ENCOUNTER → 2022-09-12 | Outpatient (CLI) | payer BC, OTHER | END | disposition home or self-care (01) | LOC: LABPAT 10:31 | PROVIDERS: ATTEND Obstetrics & Gynecology | DX: Z53.9 Procedure and treatment not carried out, unspecified reason (principal) ==

== ENCOUNTER 2022-09-20 05:33 | Day surgery (SDC) | payer BC, OTHER ==
--- NOTE | 2022-09-16 13:29 | P.HPOB ---
History of Present Illness H&P Date: 09/16/22 Chief Complaint: chronic pelvic pain This is a 41 year old female with essure-related chronic pelvic pain. She has had extreme fatigue and intermittent abdominal pain for the past 5-[address], the abdomen is unremarkable without any acute pelvic process an d uterus measuring 7.6 x 4 x 5cm with normal bilateral ovaries. She requests hysterectomy with bilateral salpingectomy for the chronic pain. Past Medical History Past Medical History: No Reported History Additional Past Medical History / Comment(s): Seasonal allergies, IBS, frequent abd. pain, spondylolithesis History of Any Multi-Drug Resistant Organisms: None Reported Past Surgical History: Back Surgery, Orthopedic Surgery Additional Past Surgical History / Comment(s): Posterior lumbar decompression and fusion, transforaminal lumbar interbody fusion L5-S1 with cell saver, graft and NIM cord monitoring, ESSURE PROCEDURE, PAIN INJECTIONS to low back, ARTHROSCOPY LEFT KNEE. Past Anesthesia/Blood Transfusion Reactions: Postoperative Nausea & Vomiting (PONV) Additional Past Anesthesia/Blood Transfusion Reaction / Comment(s): Pt has never received blood. Smoking Status: Former smoker - Past Family History Mother Additional Family Medical History / Comment(s): Hysterectomy for pre-cancer. Father Family Medical History: No Reported History Additional Family Medical History / Comment(s): Father is an alcoholic per pt. Medications and Allergies Home Medications Medication Instructions Recorded Confirmed Type Cyclobenzaprine [Flexeril] 10 mg PO BID PRN 01/10/22 09/15/22 History traMADol HCL 50 mg PO BID PRN 09/16/22 09/16/22 History Allergies Allergy/AdvReac Type Severity Reaction Status Date / Time methylprednisolone Allergy Unknown Swelling Verified 09/15/22 15:40 of face, itching, red face. amoxicillin [Amoxicillin] Allergy HIVES Verified 09/15/22 15:40 prednisone Allergy SOB Verified 09/15/22 15:40 Milk Containing Products AdvReac Unknown Diarrhea Verified 09/15/22 15:40 steroid Allergy Swelling Uncoded 09/15/22 15:40 Exam Intake and Output 09/15/22 09/16/22 09/16/22 22:59 06:59 14:59 Other: Weight 95.254 kg Focused physical exam is performed. This is a healthy-appearing female in no apparent distress. On pelvic exam, uterus is non-enlarged, non-tender, and midline. No adnexal masses are appreciated. Assessment and Plan Assessment: 41 year old with chronic pelvic pain related to essure devices in situ who presents for Robotic Assisted Vaginal Hysterectomy, Bilateral Salpingectomy, and Cystoscopy, possible laparotomy, possible oophorectomy. Plan: Risks, benefits, and alternatives to surgery were discussed with the patient including risk of bleeding, infection, damage to surrounding structures such as bladder/bowel/ureters, and post-operative VTE discussed. The patient understands these risks and desires to proceed with surgery as scheduled. Time with Patient: Less than 30
[2022-09-20] MEDS ORDERED: ONDANSETRON 4 MG/2 ML VIAL IVP ONE (05:51)
[2022-09-20] MEDS: LACTATED RINGERS 1,000 ML IV SCH ×3 (06:00→16:06)
[2022-09-20] MEDS ORDERED: MIDAZOLAM 2 MG/2 ML VIAL IVP ONE (06:51)
[2022-09-20] MEDS ORDERED: fentaNYL (PF) 50 MCG/ML 2 ML AMP IVP ONE (07:03)
[2022-09-20] MEDS ORDERED: SUCCINYLCHOLINE CHLORIDE 200 MG/10 ML VIAL IV ONE (07:07)
[2022-09-20] MEDS ORDERED: diphenhydrAMINE 50 MG/ML 1 ML VIAL ONE (07:07)
[2022-09-20] MEDS ORDERED: PROPOFOL 10 MG/ML 20 ML VIAL IV ONE (07:07)
[2022-09-20] MEDS ORDERED: ROCURONIUM 10 MG/ML (5 ML VIAL) IV ONE (07:07)
[2022-09-20] MEDS ORDERED: LIDOCAINE 2% INJ 20 MG/ML (2 ML VIAL) ONE (07:07)
[2022-09-20] MEDS ORDERED: KETOROLAC 15 MG/ML 1 ML VIAL ONE (07:07)
[2022-09-20] MEDS ORDERED: fentaNYL (PF) 50 MCG/ML 2 ML AMP ONE (07:07)
[2022-09-20] MEDS ORDERED: NEOSTIGMINE 1 MG/ML 10 ML VIAL ONE (07:07)
[2022-09-20] MEDS ORDERED: GLYCOPYRROLATE 0.2 MG/ML 2 ML VIAL ONE (07:07)
[2022-09-20] MEDS ORDERED: ROPIVACAINE 5 MG/ML 30 ML VIAL ONE (07:07)
[2022-09-20] MEDS ORDERED: SODIUM CHLORIDE 0.9% (PF) 10 ML VIAL ONE (07:07)
[2022-09-20] MEDS ORDERED: METOCLOPRAMIDE 5 MG/ML 2 ML VIAL IVP PRN (08:49)
[2022-09-20] MEDS ORDERED: SIMETHICONE 80 MG CHEWABLE PO PRN (08:49)
[2022-09-20] MEDS ORDERED: ONDANSETRON 4 MG/2 ML VIAL IVP PRN (08:49)
[2022-09-20] MEDS ORDERED: diphenhydrAMINE 50 MG/ML 1 ML VIAL IVP PRN (08:49)
--- NOTE | 2022-09-20 08:49 | P.OP ---
Date of Procedure: 09/20/22 Preoperative Diagnosis: 1. Chronic pelvic pain related to essure device Postoperative Diagnosis: Same Procedure(s) Performed: Robotic assisted vaginal hysterectomy, bilateral salpingectomy, and cystoscopy Implants: None Anesthesia: JANELLE Surgeon: Valeria Aguilar Oyster Bed Worker #1: Laura Bower Estimated Blood Loss (ml): 50 IV fluids (ml): 900 Urine output (ml): 200 (clear) Pathology: other (uterus, cervix, bilateral fallopian tubes) Condition: stable Disposition: floor Indications for Procedure: This is a 41 year old with essure-related chronic pelvic pain. She has been suffering from extreme fatigue and intermittent abdominal pain for 5-6 years. She requests hysterectomy with bilateral salpingectomy for the chronic pain. Risks, benefits, and alternatives for RAVH, BS, and cystoscopy were discussed with the patient including risk of bleeding, infection, damage to surrounding structures including bladder/bowel/ureters, need for oophorectomy, need for salpingectomy, and post-operative VTE. The patient understands these risks and desires to proceed with surgery as scheduled. Operative Findings: Normal appearing pelvis, uterus, bilateral fallopian tubes and ovaries. Grossly unremarkable abdomen. Description of Procedure: Prior to the beginning of the procedure, the team paused to verify the patients identity, the procedure to be performed (in accordance with the consent, and the correct side/site. The patient was positioned appropriately. All relevant images and results were properly labeled and displayed. We addressed antibiotic prophylaxis and fluids for irrigation as applicable to this patient. Any safety precautions were addressed. The patient was taken to the operating room where general anesthesia was induced without difficulty. She was then positioned in the dorsal lithotomy position in Jeffrey stirrups. Positioning included placing her arms at her sides. After the patient was placed in what was felt to be a neurologically safe position, deep Trendelenburg position was tested prior to the operative procedure, to ensure that she would not move on the operating table. The patient was then prepped and draped in the normal sterile fashion for a combined abdominovaginal surgery. A Huynh catheter was placed in the bladder for continuous drainage. Uterus was sounded to 10 cm. [employer] manipulator was placed in the uterus for manipulation. Attention was then placed to the abdomen. The normal length Veress needle was introduced into the abdominal cavity while tenting the abdominal wall. Low pressure was noted confirming appropriate placement. The abdomen was then insufflated to 15mmHg for the remainder of the case. The Veress needle was removed, and an 8 mm port was placed at the umbilical site under direct laparscopic visualization and there was no evidence of injury from the trocar placement. Visualization of the intraabdominal cavity showed normal pelvic anatomy without evidence of adhesions. The port sites for the remainder of the case were then measured out and placed under direct visualization. On the left side, one 8 mm robotic assist port and one 10 mm assist port were placed. On the right side, one 8 mm robotic port was placed. The [employer] robot was then brought to the operative field in a lateral docking style to the left of the patient and the robot was docked to the ports. All robotic instruments were brought into the pelvis under direct visualization with monopolar scissors in arm #3 and vessel sealer in arm #1. Bilateral ureters were visualized prior to starting the surgery. The right fallopian tube was grasped at the fimbriated end and the Vessel Sealer was used to sequentially cauterize and cut the fallopian tube away from the mesosaplinx up to the level of the uterine cornua. The right uteroovarian ligement was cauterized and cut. The right round ligament was cauterized and cut. Broad ligament was opened and bladder flap created. This was repeated on the left side. The peritoneum of the bilateral broad ligaments was then taken down and monopolar cautery used to skeletonize the uterine arteries bilaterally. During the course of this d issection, the anterior leaf of the broad ligament was also taken down over the anterior aspect of the uterus and cervix to create a bladder flap. The bladder was then dissected off the cervix and upper vagina with the monopolar scissors and gentle blunt dissection. The bilateral uterine arteries were then cauterized and divided at the level of the internal cervical os. The monopolar cautery was used to incise the vaginal cuff. The uterus, along with the cervix was removed vaginally. Cuff was closed in with 0-Stratifix sutures. Excellent hemostasis was noted at this time. A 70 degree cystoscopy was performed which confirmed no suture placement within the bladder, no trauma to the bladder. Good efflux was noted from both ureteric orifices. The robot was undocked from the trocars and brought out of the operative field. The remainder of the ports were removed, and the gas was allowed to escape. All skin incisions were closed with 4-0 Monocryl and dermabond. Hemostasis was noted to be excellent throughout, and final sponge, instrument, and needle count was noted to be correct. The patient was moved back to the preoperative holding area in stable condition having tolerated the procedure well.
[2022-09-20] MEDS: LACTATED RINGERS 1,000 ML IV ONE ×2 (08:53→10:18)
[2022-09-20] MEDS: HYDROmorphone 0.5 MG/0.5 ML SYRINGE IVP PRN ×2 (09:18→10:30)
[2022-09-20] MEDS: SENNOSIDES-DOCUSATE SODIUM 1 EACH TAB PO SCH ×2 (10:18→20:32)
[2022-09-20] MEDS: KETOROLAC 15 MG/ML 1 ML VIAL IVP PRN ×2 (14:28→20:32)
[2022-09-20] MEDS: ACETAMINOPHEN TAB 325 MG TAB PO PRN (17:49)
--- NOTE | 2022-09-21 07:09 | P.PN ---
Subjective Progress Note Date: 09/21/22 Principal diagnosis: s/p RAVH, BS, Cystoscopy The patient is doing well this morning and had no acute events overnight. Pain is reasonably controlled with medications. She is ambulating, voiding without difficulty, and passing flatus. She is tolerating PO without nausea or vomiting. She has had very scant vaginal spotting. She denies chest pain, shortness of breath, fevers, chills, pain or swelling in the legs. She desires discharge home today. Objective - Vital Signs Vital signs: Vital Signs Temp 98.4 F 09/21/22 00:00 Pulse 91 09/21/22 00:00 Resp 16 09/21/22 00:00 BP 105/69 09/21/22 00:00 Pulse Ox 96 09/21/22 00:00 FiO2 Intake & Output 09/20/22 09/21/22 09/21/22 18:59 06:59 18:59 Intake Total 1250 Output Total 1450 Balance -200 Intake: IV 1250 Output: Urine 1400 Uretheral (Huynh) 500 Estimated Blood Loss 50 Other: # Voids 1 - Gastrointestinal Gastrointestinal Comment(s): Abdomen soft, non-tender, non-distended. Incisions clean, dry, and intact with skin glue. General gastrointestinal: Present: soft - Genitourinary Genitourinary Comment(s): Menstrual pad without any blood. - Psychiatric Psychiatric: Present: A&O x's 3, appropriate affect, intact judgment & insight - Additional findings Additional findings: Extremities non-edematous, non-tender bilaterally Assessment and Plan Assessment: 41 year old with chronic pelvic pain related to essure devices in situ now POD#1 s/p Robotic Assisted Vaginal Hysterectomy, Bilateral Salpingectomy, and Cystoscopy. Plan: Risks, benefits, and alternatives to surgery were discussed with the patient including risk of bleeding, infection, damage to surrounding structures such as bladder/bowel/ureters, and post-operative VTE discussed. The patient understands these risks and desires to proceed with surgery as scheduled. Time with Patient: Less than 30
--- NOTE | 2022-09-21 07:15 | P.DS ---
Providers Date of admission: 09/20/22 Expected date of discharge: 09/21/22 Attending physician: Valeria Aguilar MD Primary care physician: Nag[facility] Course: 41 year old with chronic pelvic pain related to essure devices in situ now POD#1 s/p Robotic Assisted Vaginal Hysterectomy, Bilateral Salpingectomy, and Cystoscopy. The patient is doing well this morning and had no acute events overnight. She has no complaints this morning. She reports scant vaginal spotting, passing flatus, voiding without difficulty, ambulating, and eating/drinking without nausea or vomiting.She denies chest pain, shortness of breathing, fevers, or chills overnight. She denies pain or swelling in the legs. Postoperative restrictions are reviewed with the patient including pelvic rest for 6 weeks, no lifting heavier than 15 pounds for 6 weeks. Encouraged incentive spirometer use. The patient is encouraged to call the office if she experiences any heavy bleeding, foul-smelling discharge, or any if she has any other concerns. She will follow up in the office with in 2 weeks for postoperative exam. All questions are answered. Assessment: 41 year old with chronic pelvic pain related to essure devices in situ now POD#1 s/p Robotic Assisted Vaginal Hysterectomy, Bilateral Salpingectomy, and Cystoscopy. Patient Condition at Discharge: Good Plan - Discharge Summary Discharge Rx Participant: Yes New Discharge Prescriptions: New polyethylene glycoL 3350 [Miralax] 17 gm PO DAILY PRN #527 gm PRN Reason: Constipation Ibuprofen [Motrin] 600 mg PO Q6HR PRN #30 tab PRN Reason: Mild Pain (Scale 1 To 3) oxyCODONE HCL [Roxicodone] 5 mg PO Q6HR PRN 3 Days #12 tab PRN Reason: Breakthrough Pain Acetaminophen Tab [Tylenol] 650 mg PO Q6H PRN #30 tab PRN Reason: Mild Pain (Scale 1 To 3) No Action Cyclobenzaprine [Flexeril] 10 mg PO BID PRN PRN Reason: Muscle Spasm traMADol HCL 50 mg PO BID PRN PRN Reason: Pain Discharge Medication List Cyclobenzaprine [Flexeril] 10 mg PO BID PRN 01/10/22 [History] traMADol HCL 50 mg PO BID PRN 09/16/22 [History] Acetaminophen Tab [Tylenol] 650 mg PO Q6H PRN #30 tab 09/21/22 [Rx] Ibuprofen [Motrin] 600 mg PO Q6HR PRN #30 tab 09/21/22 [Rx] oxyCODONE HCL [Roxicodone] 5 mg PO Q6HR PRN 3 Days #12 tab 09/21/22 [Rx] polyethylene glycoL 3350 [Miralax] 17 gm PO DAILY PRN #527 gm 09/21/22 [Rx] Follow up Appointment(s)/Referral(s): Valeria Aguilar MD [STAFF PHYSICIAN] - 2 Weeks Patient Instructions/Handouts: Laparoscopic Hysterectomy (DC) Activity/Diet/Wound Care/Special Instructions: Pelvic rest for 6 weeks, no lifting heavier than 15 pounds for 6 weeks Discharge Disposition: HOME SELF-CARE
[2022-09-21] MEDS: SENNOSIDES-DOCUSATE SODIUM 1 EACH TAB PO SCH (07:40)
[2022-09-21] MEDS: ACETAMINOPHEN TAB 325 MG TAB PO PRN (07:41)
[2022-09-21 07:52] VITALS: BP 95/65; PULSE 81; RESP 14; TEMP 98.1
[2022-09-21] MEDS ORDERED: ACETAMINOPHEN TAB 325 MG TAB PO PRN (08:50)
--- NOTE | 2022-09-21 20:32 | P.ANPRN ---
Procedure Note - Anesthesia - Nerve Block Performed Bilateral Erector Spinae Single Time Out Performed: Yes Date of Procedure: 09/20/22 Procedure Start Time: 06:50 Procedure Stop Time: 07:00 Location of Patient: PreOp Indication: Acute Post-Operative Pain, Requested by Surgeon Sedation Type: Sedate with meaningful contact maintained Preparation: Sterile Prep Position: Prone Needle Types: Pajunk Needle Gauge: 21 Ultrasound used to visualize needle placement: Yes Ultrasound used to observe medication spread: Yes Blood Aspirated: No Pain Paresthesia on Injection Noted: No Resistance on Injection: Normal Image Stored and Saved: Yes Events: Uneventful and Well Tolerated (Ropivacaine 0.5% 15 mL plus normal saline 10 mL plus dexamethasone 4 mg given bilaterally at L1)
== END 2022-09-21 09:06 | disposition home or self-care (01) ==
LOC: OR 05:33 → 4FBP 08:45 → OR 09-21 09:06
PROVIDERS: ATTEND Obstetrics & Gynecology
DX: N72 Inflammatory disease of cervix uteri (principal); N88.8 Other specified noninflammatory disorders of cervix uteri; N87.9 Dysplasia of cervix uteri, unspecified; N83.8 Other noninflammatory disorders of ovary, fallopian tube and broad ligament; Z97.5 Presence of (intrauterine) contraceptive device; G89.29 Other chronic pain; Z87.19 Personal history of other diseases of the digestive system; Z87.39 Personal history of other diseases of the musculoskeletal system and connective tissue; Z98.890 Other specified postprocedural states; Z98.1 Arthrodesis status; Z87.891 Personal history of nicotine dependence; Z79.1 Long term (current) use of non-steroidal anti-inflammatories (NSAID); Z79.899 Other long term (current) drug therapy; Z88.0 Allergy status to penicillin; Z88.8 Allergy status to other drugs, medicaments and biological substances; Z91.011 Allergy to milk products; G89.18 Other acute postprocedural pain
CPT/HCPCS: 58552; S2900; 64999; 81025; 86850; 86900; 86901; 88307; 88309

== ENCOUNTER 2023-02-28 14:05 | Emergency (ER) | payer BC, OTHER ==
--- NOTE | 2023-02-28 14:38 | ED ---
General Adult HPI - General Source: patient, RN notes reviewed Mode of arrival: ambulatory Limitations: no limitations <Marty Wu - Last Filed: 02/28/23 14:35> <Bobby Suggs - Last Filed: 02/28/23 19:43> - General Stated complaint: abnormal labs Time Seen by Provider: 02/28/23 14:35 - History of Present Illness Initial comments: 42-year-old female presents emergency Department chief complaint shortness of breath. Patient states she's had progressive shortness of breath, exertional dyspnea. Patient was sent in by PCP as she has an elevated d-dimer. Patient has been treated for acute bronchitis has had recent x-rays. Patient has no history of blood clots. Patient denies any leg pain no recent swelling or traveling. (Marty Wu) Dictation was produced using [employer] dictation software. please excuse any grammatical, word or spelling errors. Chief Complaint: 42-year-old feel presents to emergency department for elevated d-dimer History of Present Illness: This 42-year-old feel presents with elevated d- dimer. She had a d-dimer drawn by outpatient doctors. She was told she had elevated level she should come to the emergency department to be evaluated. And received a CT angiography. Patient states that she doesn't know the exact lab value. She was dealing with bronchitis symptoms that were from a couple weeks ago. Has a history of blood clots. No low showing symptoms. She does not take any oral contraception. She has no leg pain. The ROS documented in this emergency department record has been reviewed and confirmed by me. Those systems with pertinent positive or negative responses have been documented in the HPI. All other systems are other negative and/or noncontributory. (Bobby Suggs) - Related Data Home Medications Medication Instructions Recorded Confirmed Cyclobenzaprine [Flexeril] 10 mg PO BID PRN 01/10/22 09/20/22 traMADol HCL 50 mg PO BID PRN 09/16/22 09/20/22 Previous Rx's Medication Instructions Recorded Acetaminophen Tab [Tylenol] 650 mg PO Q6H PRN #30 tab 09/21/22 Ibuprofen [Motrin] 600 mg PO Q6HR PRN #30 tab 09/21/22 oxyCODONE HCL [Roxicodone] 5 mg PO Q6HR PRN 3 Days #12 tab 09/21/22 polyethylene glycoL 3350 [Miralax] 17 gm PO DAILY PRN #527 gm 09/21/22 Allergies Allergy/AdvReac Type Severity Reaction Status Date / Time methylprednisolone Allergy Unknown Swelling Verified 02/28/23 15:04 of face, itching, red face. amoxicillin [Amoxicillin] Allergy HIVES Verified 02/28/23 15:04 prednisone Allergy SOB Verified 02/28/23 15:04 Milk Containing Products AdvReac Unknown Diarrhea Verified 02/28/23 15:04 (Dairy) [Milk Containing Products] steroid Allergy Swelling Uncoded 02/28/23 15:04 Review of Systems ROS Other: All systems not noted in ROS Statement are negative. <Marty Wu - Last Filed: 02/28/23 14:35> ROS Other: All systems not noted in ROS Statement are negative. <Bobby Suggs - Last Filed: 02/28/23 19:43> ROS Statement: Those systems with pertinent positive or pertinent negative responses have been documented in the HPI. Past Medical History Past Medical History: No Reported History Additional Past Medical History / Comment(s): Seasonal allergies, IBS, back pain with radiation down right leg. History of Any Multi-Drug Resistant Organisms: None Reported Past Surgical History: Back Surgery, Orthopedic Surgery Additional Past Surgical History / Comment(s): Posterior lumbar decompression and fusion, transforaminal lumbar interbody fusion L5-S1 with cell saver, graft and NIM cord monitoring, ESSURE PROCEDURE, PAIN INJECTIONS to low back, ARTHROSCOPY LEFT KNEE. Past Anesthesia/Blood Transfusion Reactions: Previous Problems w/ Anesthesia, Postoperative Nausea & Vomiting (PONV) Additional Past Anesthesia/Blood Transfusion Reaction / Comment(s): Pt has never recieved blood. Smoking Status: Current every day smoker Past Alcohol Use History: Occasional Additional Past Alcohol Use History / Comment(s): Started smoking at age 11, SMOKED 1 PPD, QUIT VAPING. Only smokes some days now. - Past Family History Mother Additional Family Medical History / Comment(s): Hysterectomy for pre-cancer. Father Family Medical History: No Reported History Additional Family Medical History / Comment(s): Father is an alcoholic per pt. <Marty Wu - Last Filed: 02/28/23 14:35> General Exam <Marty uW - Last Filed: 02/28/23 14:35> <Bobby Suggs - Last Filed: 02/28/23 19:43> - General Exam Comments Initial Comments: Visual Physical Exam Vital signs reviewed General: Well-appearing, nontoxic, no acute distress. Head: Normocephalic, atraumatic Eyes: PERRLA, EOMI ENT: Airway patent Chest: Nonlabored breathing Skin: No visual rash, normal skin tone Neuro: Alert and oriented 3 Musculoskeletal: No gross abnormalities (Marty Wu) PHYSICAL EXAM: General Impression: Alert and oriented x3, not in acute distress HEENT: Normocephalic atraumatic, extra-ocular movements intact, pupils equal and reactive to light bilaterally, mucous membranes moist. Cardiovascular: Heart regular rate and rhythm Chest: Able to complete full sentences, no retractions, no tachypnea Abdomen: abdomen soft, non-tender, non-distended, no organomegaly Musculoskeletal: Pulses present and equal in all extremities, no peripheral edema Motor: no focal deficits noted Neurological: CN II-XII grossly intact, no focal motor or sensory deficits noted Skin: Intact with no visualized rashes Psych: Normal affect and mood (Bobby Suggs) Course Vital Signs 02/28/23 14:58 Temperature 98.3 F Pulse Rate 87 Respiratory 20 Rate Blood Pressure 128/82 O2 Sat by Pulse 100 Oximetry Medical Decision Making <Marty Wu - Last Filed: 02/28/23 14:35> - Lab Data Result diagrams: 02/28/23 15:05 02/28/23 15:05 <Bobby Suggs - Last Filed: 02/28/23 19:43> - Medical Decision Making I completed the quick note portion of this chart signed Marty Wu PA-C (Marty Wu) Was pt. sent in by a medical professional or institution (ALEXI Solorzano, VACCINE MANAGER, urgent care, hospital, or jail...) When possible be specific @ -No Did you speak to anyone other than the patient for history (EMS, parent, family, police, friend...)? What history was obtained from this source @ -No Did you review nursing and triage notes (agree or disagree)? Why? @ -I reviewed and agree with nursing and triage notes Were old charts reviewed (outside hosp., previous admission, EMS record, old EKG, old radiological studies, urgent care reports/EKG's, jail records)? Report findings @ -No old charts were reviewed Differential Diagnosis (chest pain, altered mental status, abdominal pain women, abdominal pain men, vaginal bleeding, musculoskeletal, weakness, fever, dyspnea, syncope, headache, dizziness, GI bleed, back pain, seizure, CVA, palpatations, mental health)? @ -Differential Dyspnea: Coronary syndrome, arrhythmia, tamponade, asthma, COPD, pulmonary embolism, pneumonia, pneumothorax, pulmonary effusion, anaphylaxis, diabetic ketoacidosis, flailed chest, pulmonary contusion, diaphragmatic rupture, anemia, neuromuscular, this is not meant to be an all-inclusive list. EKG interpreted by me (3pts min.). @ -None done X-rays interpreted by me (1pt min.). @ -None done CT interpreted by me (1pt min.). @ -CT of the chest shows no pulmonary emboli U/S interpreted by me (1pt. min.). @ -None done What testing was considered but not performed or refused? (CT, X-rays, U/S, labs)? Why? @ -None What meds were considered but not given or refused? Why? @ -None Did you discuss the management of the patient with other professionals (professionals i.e. , PA, VACCINE MANAGER, lab, RT, psych nurse, family welfare social work professor, contact center analyst, teacher, corporate trust officer, field case manager)? Give summary @ -No Was smoking cessation discussed for >3mins.? @ -No Was critical care preformed (if so, how long)? @ -No Were there social determinants of health that impacted care today? How? (Homelessness, low income, unemployed, alcoholism, drug addiction, transportation, low edu. Level, literacy, decrease access to med. care, alf, rehab)? @ -No Was there de-escalation of care discussed even if they declined (Discuss DNR or withdrawal of care, Hospice)? DNR status @ -No What co-morbidities impacted this encounter? (DM, HTN, Smoking, COPD, CAD, Cancer, CVA, ARF, Chemo, Hep., AIDS, mental health diagnosis, sleep apnea, morbid obesity)? @ -None Was patient admitted / discharged? Hospital course, mention meds given and rout e, prescriptions, significant lab abnormalities, going to OR and other pertinent info. @ -42 Year-old female has been having subacute to chronic dyspnea. She had outpatient d-dimer drawn that she was told was elevated. Vital signs upon arrival are within acceptable limits. Labs drawn today found to be unremarkable. Troponin is negative. CT angiography shows no pulmonary emboli or any other acute process. Patient be discharged and advised follow-up with primary care doctor. Undiagnosed new problem with uncertain prognosis? @ -No Drug Therapy requiring intensive monitoring for toxicity (Heparin, Nitro, Insulin, Cardizem)? @ -No Were any procedures done? @ -No Diagnosis/symptom? Acute, or Chronic, or Acute on Chronic? Uncomplicated ( without systemic symptoms) or Complicated (systemic symptoms)? @ -Elevated D-dimer Side effects of treatment? @ -No Exacerbation, Progression, or Severe Exacerbation? @ -No Poses a threat to life or bodily function? How? (Chest pain, USA, ME, pneumonia, PE, COPD, DKA, ARF, appy, cholecystitis, CVA, Diverticulitis, Homicidal, Suicidal, threat to staff... and all critical care pts) @ -No (Bobby Suggs) - Lab Data Lab Results 02/28/23 02/28/23 02/28/23 Range/Units 15:05 15:05 15:05 WBC 9.8 (3.8-10.6) k/uL RBC 4.56 (3.80-5.40) m/uL Hgb 13.0 (11.4-16.0) gm/dL Hct 39.5 (34.0-46.0) % MCV 86.6 (80.0-100.0) fL MCH 28.4 (25.0-35.0) pg MCHC 32.8 (31.0-37.0) g/dL RDW 12.6 (11.5-15.5) % Plt Count 353 (150-450) k/uL MPV 7.3 Neutrophils % 67 % Lymphocytes % 22 % Monocytes % 5 % Eosinophils % 4 % Basophils % 1 % Neutrophils # 6.6 (1.3-7.7) k/uL Lymphocytes # 2.2 (1.0-4.8) k/uL Monocytes # 0.5 (0-1.0) k/uL Eosinophils # 0.4 (0-0.7) k/uL Basophils # 0.1 (0-0.2) k/uL PT 11.4 (10.0-12.5) sec INR 1.1 (<1.2) APTT 25.3 (22.0-30.0) sec Sodium 139 (137-145) mmol/L Potassium 3.9 (3.5-5.1) mmol/L Chloride 101 (98-107) mmol/L Carbon Dioxide 26 (22-30) mmol/L Anion Gap 12 mmol/L BUN 14 (7-17) mg/dL Creatinine 0.74 (0.52-1.04) mg/dL Est GFR (CKD-EPI)AfAm >90 (>60 ml/min/1.73 sqM) Est GFR (CKD-EPI)NonAf >90 (>60 ml/min/1.73 sqM) Glucose 78 (74-99) mg/dL Calcium 9.6 (8.4-10.2) mg/dL Magnesium 2.1 (1.6-2.3) mg/dL Total Bilirubin 0.3 (0.2-1.3) mg/dL AST 19 (14-36) U/L ALT 19 (4-34) U/L Alkaline Phosphatase 83 (38-126) U/L Troponin I (0.000-0.034) ng/mL Total Protein 7.5 (6.3-8.2) g/dL Albumin 4.3 (3.5-5.0) g/dL 02/28/23 Range/Units 15:05 WBC (3.8-10.6) k/uL RBC (3.80-5.40) m/uL Hgb (11.4-16.0) gm/dL Hct (34.0-46.0) % MCV (80.0-100.0) fL MCH (25.0-35.0) pg MCHC (31.0-37.0) g/dL RDW (11.5-15.5) % Plt Count (150-450) k/uL MPV Neutrophils % % Lymphocytes % % Monocytes % % Eosinophils % % Basophils % % Neutrophils # (1.3-7.7) k/uL Lymphocytes # (1.0-4.8) k/uL Monocytes # (0-1.0) k/uL Eosinophils # (0-0.7) k/uL Basophils # (0-0.2) k/uL PT (10.0-12.5) sec INR (<1.2) APTT (22.0-30.0) sec Sodium (137-145) mmol/L Potassium (3.5-5.1) mmol/L Chloride (98-107) mmol/L Carbon Dioxide (22-30) mmol/L Anion Gap mmol/L BUN (7-17) mg/dL Creatinine (0.52-1.04) mg/dL Est GFR (CKD-EPI)AfAm (>60 ml/min/1.73 sqM) Est GFR (CKD-EPI)NonAf (>60 ml/min/1.73 sqM) Glucose (74-99) mg/dL Calcium (8.4-10.2) mg/dL Magnesium (1.6-2.3) mg/dL Total Bilirubin (0.2-1.3) mg/dL AST (14-36) U/L ALT (4-34) U/L Alkaline Phosphatase (38-126) U/L Troponin I <0.012 (0.000-0.034) ng/mL Total Protein (6.3-8.2) g/dL Albumin (3.5-5.0) g/dL Disposition <Marty Wu - Last Filed: 02/28/23 14:35> Is patient prescribed a controlled substance at d/c from ED?: No Time of Disposition: 19:43 <Bobby Suggs - Last Filed: 02/28/23 19:43> Clinical Impression: D dimer value unknown Disposition: HOME SELF-CARE Condition: Good Instructions (If sedation given, give patient instructions): Dyspnea (ED) Referrals: Nagi Strickland DO [Primary Care Provider] - 1-2 days
[2023-02-28 15:10] VITALS: TEMP 98.3
[2023-02-28 15:18] LABS: Basophils # (A) 0.1 k/uL (0-0.2); Basophils % (A) 1 %; Eosinophils # (A) 0.4 k/uL (0-0.7); Eosinophils % (A) 4 %; HCT 39.5 % (34.0-46.0); Lymphocytes # (A) 2.2 k/uL (1.0-4.8); Lymphocytes % (A) 22 %; MCH 28.4 pg (25.0-35.0); MCHC 32.8 g/dL (31.0-37.0); MCV 86.6 fL (80.0-100.0); Mean Platelet Volume 7.3; Monocytes # (A) 0.5 k/uL (0-1.0); Monocytes % (A) 5 %; Neutrophils # (A) 6.6 k/uL (1.3-7.7); Neutrophils % (A) 67 %; Platelet Count 353 k/uL (150-450); RBC 4.56 m/uL (3.80-5.40); RDW 12.6 % (11.5-15.5); WBC 9.8 k/uL (3.8-10.6)
[2023-02-28 15:29] LABS: ALT 19 U/L (4-34); AST 19 U/L (14-36); African American GFR (CKD) >90 (>60 ml/min/1.73 sqM); Albumin 4.3 g/dL (3.5-5.0); Alkaline Phosphatase 83 U/L (38-126); Anion Gap 12 mmol/L; Blood Urea Nitrogen 14 mg/dL (7-17); Calcium 9.6 mg/dL (8.4-10.2); Carbon Dioxide 26 mmol/L (22-30); Chloride 101 mmol/L (98-107); Glucose 78 mg/dL (74-99); Magnesium 2.1 mg/dL (1.6-2.3); Non-African American GFR(CKD) >90 (>60 ml/min/1.73 sqM); Potassium 3.9 mmol/L (3.5-5.1); Sodium 139 mmol/L (137-145); Total Bilirubin 0.3 mg/dL (0.2-1.3); Total Protein 7.5 g/dL (6.3-8.2)
[2023-02-28 15:34] LABS: INR 1.1 (<1.2); Partial Thromboplastin Time 25.3 sec (22.0-30.0); Prothrombin Time 11.4 sec (10.0-12.5)
--- NOTE | 2023-02-28 15:47 | CT ---
EXAMINATION TYPE: CT chest angio for PE DATE OF EXAM: 02/28/2023 COMPARISON: None. HISTORY: Exertional dyspnea, elevated d-dimer CT DLP: 457.7 mGycm CONTRAST: CT chest with contrast and 3D reconstruction with MIP imaging is performed with IV Contrast, patient injected with 65ml mL of Isovue 300. Contrast-enhanced CT of the chest was performed through the course of the pulmonary arteries with amira g and mediastinal window settings submitted. 3D reconstruction with MIP imaging was also performed. PULMONARY ARTERIES: The pulmonary arteries and their major tributaries are patent. I do not see radhika dence for sizable filling defect to suggest pulmonary embolic process. LUNGS: The lungs are clear and free of infiltrate. No evidence for atelectasis. No pulmonary nodule or mass is detected. No pleural effusion. MEDIASTINUM: Thoracic aorta is of normal caliber. The heart is mildly enlarged. No evidence for me diastinal mass. No mediastinal lymph nodes greater than 1cm. HILAR STRUCTURES: No evidence for mass. No hilar lymph nodes greater than 1 cm. UPPER ABDOMEN: No significant abnormality is seen. IMPRESSION: 1. No evidence for Pulmonary embolism at this time.
[2023-02-28 20:13] VITALS: BP 119/80; PULSE 83; RESP 18
== END 2023-02-28 20:11 | disposition home or self-care (01) ==
LOC: EC 14:05
DX: R79.1 Abnormal coagulation profile (principal); F17.210 Nicotine dependence, cigarettes, uncomplicated; Z88.0 Allergy status to penicillin; Z91.011 Allergy to milk products; Z88.8 Allergy status to other drugs, medicaments and biological substances
CPT/HCPCS: 36415; 93005; 80053; 83735; 84484; 85025; 85610; 85730; 71275; 99284; Q9967